=== PATIENT | female | born 1975 | race Caucasian/White ===

== ENCOUNTER 2016-11-03 13:25 | Inpatient (IN) | payer MEDICAID ==
[~2016-11-03] VITALS: Ht 162.6 cm; Wt 96.2 kg
[~2016-11-03 13:25] MED LIST: ATOR20TA15 PO; LEVO50TA4 PO; METO50TA PO; XANA1TAB2 PO
[2016-11-07] MEDS ORDERED: CITA10TA4 PO (12:13)
[2016-11-07] MEDS ORDERED: GABA300C5 PO (12:13)
[2016-11-07] MEDS ORDERED: HYDR-3580 PO (12:13)
[2016-11-10] MEDS ORDERED: CHLORHEXIDINE GLUCONATE 2 % 1 PACK (2 CLOTHS) TOPICAL PRN (05:45)
[2016-11-10] MEDS ORDERED: LACTATED RINGER'S 1000 ML IV PRN (05:45)
[2016-11-10] MEDS ORDERED: METOPROLOL TARTRATE 25 MG TAB PO PRN (05:45)
[2016-11-10] MEDS ORDERED: ceFAZolin 1,000 MG/NS 100 ML IV SCH ×2 (05:45)
[2016-11-10] MEDS ORDERED: POVIDONE IODINE 5% (ANTISEPSIS KIT) 4 APPLICATIONS EACH NARE PRN (05:45)
[2016-11-10] MEDS ORDERED: SODIUM CHLORID 0.9% 500 ML IV PRN (05:45)
[2016-11-10] MEDS ORDERED: INSULIN HUMAN REGULAR 1,000 UNITS/10 ML VIAL SQ PRN (05:45)
[2016-11-10] MEDS ORDERED: LACTATED RINGER'S 1000 ML INJ 1,000 ML IV SCH (05:45)
[2016-11-10] MEDS ORDERED: ceFAZolin 2 GM PREMIX 50 ML IV SCH (06:00)
[2016-11-10 06:08] VITALS: BP 143/71; PULSE 74; RESP 16; TEMP 98.2; O2SAT 99
[2016-11-10] MEDS ORDERED: ceFAZolin INJ 1,000 MG VIAL ONE (06:23)
[2016-11-10] MEDS ORDERED: SODIUM CHLORIDE 0.9% INJ 100 ML ONE (06:23)
[2016-11-10] MEDS ORDERED: GELFOAM SIZE 100 ONE (06:57)
[2016-11-10] MEDS ORDERED: LIDOCAINE 1%/EPINEPHrine 1:100,000 SOLN 20 ML VIAL ONE (06:57)
[2016-11-10] MEDS ORDERED: THROMBIN (TOPICAL) 5,000 UNIT VIAL ONE (06:57)
[2016-11-10] MEDS ORDERED: GENTAMICIN SULFATE 80 MG/2 ML VIAL ONE ×2 (06:57→12:33)
[2016-11-10] MEDS ORDERED: ACETAMINOPHEN 1000 MG/100 ML VIAL IV ONE (07:42)
[2016-11-10] MEDS ORDERED: MIDAZOLAM HCL 2 MG/2 ML VIAL ONE (07:42)
[2016-11-10] MEDS ORDERED: FAMOTIDINE 20 MG/2 ML VIAL ONE (07:42)
[2016-11-10] MEDS ORDERED: ceFAZolin INJ 1,000 MG VIAL IV ONE ×2 (09:09→13:09)
[2016-11-10] MEDS ORDERED: BUPIVACAINE/EPINEPHRINE 0.5% 50 ML VIAL INFIL ONE (09:10)
[2016-11-10] MEDS ORDERED: ePHEDrine/NS 25 MG/5 ML SYR IV ONE (12:00)
[2016-11-10] MEDS ORDERED: ONDANSETRON HCL 4 MG/2 ML VIAL IV PUSH ONE (12:00)
[2016-11-10] MEDS ORDERED: LACTATED RINGER'S 1000 ML INJ 2,000 ML IV ONE (12:00)
[2016-11-10] MEDS ORDERED: PHENYLEPH/NS 1000 MCG/10 ML SYR IV ONE (12:00)
[2016-11-10] MEDS ORDERED: PHENYLEPHRINE HCL 10 MG/ML VIAL IV ONE (12:00)
[2016-11-10] MEDS ORDERED: PROPOFOL 200 MG/20 ML AMP IV ONE (12:00)
[2016-11-10] MEDS ORDERED: NORMOSOL R INJ 3,000 ML IV ONE (12:00)
[2016-11-10] MEDS ORDERED: SODIUM CHLORIDE 0.9% FLUSH 5 ML FLUSH IVF PRN (15:15)
[2016-11-10] MEDS ORDERED: MORPHINE SULFATE 4 MG/ML INJ IV PRN (15:15)
[2016-11-10] MEDS ORDERED: NALOXONE HCL 0.4 MG/ML AMP IV PRN ×2 (15:15)
--- NOTE | 2016-11-10 15:25 | PD.OP ---
Operative Report Date of Surgery: Nov 10, 2016 Preoperative Diagnosis: (1) Spondylolisthesis of lumbar region (2) Annular tear of lumbar disc (3) Lumbar radiculopathy (4) Degeneration, intervertebral disc, lumbosacral (5) Low back pain 1. Grade 1 L4 5 spondylolisthesis with bilateral pars defect 2. L4 5 and L5-S1 annular tear 3. Lumbar radiculopathy 4. Lumbar degenerative disc disease 5. Severe chronic low back pain Postoperative Diagnosis: (1) Spondylolisthesis of lumbar region (2) Annular tear of lumbar disc (3) Lumbar radiculopathy (4) Degeneration, intervertebral disc, lumbosacral (5) Low back pain 1. Grade 1 L4 5 spondylolisthesis with bilateral pars defect 2. L4 5 and L5-S1 annular tear 3. Lumbar radiculopathy 4. Lumbar degenerative disc disease 5. Severe chronic low back pain Procedure: Stage I of anticipated two-stage procedure 1. Anterior retroperitoneal approach to the anterior lumbosacral spine (Dr. Elie Mera.) 2. L4 5 and L5-S1 anterior lumbar discectomy 3. L4 5 and L5-S1 lumbar anterior interbody fusion with PEEK cage, cancellus bone chips, DBM, bone marrow aspirate 4. L4 5 and L5-S1 anterior instrumentation Anesthesia: Gen. endotracheal Surgeon: Mike Tracy Patient Care Director(s): Dia Lee Operation and Findings: Indications: 41-year-old female with severe progressive intractable back pain with radiation to primarily the left greater than right lower extremity. Preoperative imaging indicates bilateral L4 pars defect with grade 1 anterolisthesis. Significant L5-S1 degenerative disc disease with significant loss of posterior intervertebral disc space height and positive annular tear. Findings were discussed again preoperatively with the patient. Patient advised prior to surgery that in the event of significant instability noted intraoperatively including with positioning, that an anticipated second stage procedure for placement of percutaneous posterior pedicle screws at the L4 -5 level will need to be performed. All patient questions answered prior to surgery. She appeared to understand the procedure and indications. Findings: Significant instability noted at the L4 5 level with excessive mobility particularly in distraction noted following disc removal. The patient was brought into the operating room, properly identified, availability of all personnel, equipment, imaging studies verified. Gen. endotracheal anesthesia was induced without difficulty. Lines were established. Anesthesia. Ludwig catheter was placed Leads for intraoperative neuro monitoring were placed and baseline study obtained The patient was placed in supine position on the concentric Zac table and all extremities appropriately padded. The arms were crossed over the upper anterior chest and secured with appropriate padding. A small corrugated cushion was placed beneath the lower lumbar region to maintain appropriate lumbar lordosis. The positioning was checked with intraoperative C-arm. The trajectory for the placement of the L4 5 and L5-S1 interbody cage was checked with C-arm imaging in order to plan the appropriate incision level.. The abdominal region was shaved, sterilely prepped and draped. Appropriate time-out procedure was performed without personal present and in agreement. The initial incision and anterior retroperitoneal approach to the L4 5 and L5- S1 levels was performed by Dr. Elie Mera and will be dictated separately. The undersigned entered the room with initial excellent exposure of the L4 5 level with retractors in place. The procedure was performed initially at the L4 5 and then the L5-S1 level sequentially, with Gen. surgery replacing the retractors for appropriate exposure between each level. The L4 5 and then L5-S1 level was sequentially verified with intraoperative C- arm. At each level, the midline incision in the annulus was made with a 10 blade knife followed by incising the anterior lateral annulus to raise a small annular flap which was retracted with a 2-0 silk suture. The round disc elevator was then used to elevate the disc away from the endplate down to the posterior vertebral margin, monitoring the progress with the lateral C-arm imaging. The majority of the disc was then removed with the large rongeurs . The remaining disc was carefully removed with the curettes and endplate scrapers to fully decorticate the endplates. The posterior vertebral body margin adjacent to the disc space was then contoured with the TPS drill with the M8 cherrie to allow proper posterior placement of the interbody cage within the disc space. The thin ligament dissector was used to release the annulus from the posterior vertebral body margin and the 3 mm Kerrison rongeur was used to remove an additional portion of the posterior vertebral body margin adjacent to the disc space at each level again to allow proper cage placement. An annular tear was noted within the mid annulus at each level, but no sequestered disc herniation was seen extending through the annular tear. At each level, the appropriate sized lordotic cage was placed based on initial trial placement using C-arm monitoring. Each cage was filled with corticocancellous chips mixed with bone marrow aspirate obtained from the L4 and L5 vertebral body using the bone marrow aspiration kit. The trocar was advanced into the vertebral artery using C-arm monitoring and sufficient amount of pulmonary aspirate was obtained for the adjacent cage. At the L4-5 and L5-S1 level, a 15 15 x 32 mm lordotic cage was placed. The annular flap was then reapproximated with a 2-0 Vicryl suture sequentially at each level. At each level sequentially, using C-arm monitoring, the [employer] anterior lumbar plate was secured using the variable screws. A 25 mm plate was used at L4-5, and a 27 mm plate at L5-S1, both anchored with 5.025 mm variable screws. The locking cam was engaged to secure the screws on each plate. The final construct was checked with intraoperative C-arm and felt to be satisfactory. The regions were well irrigated with antibiotic irrigation. The final closure was performed per general surgery, which will be dictated separately. A final flat plate abdominal x-ray was obtained to verify no foreign bodies left in the abdominal cavity, and this was reviewed per radiology prior to the patient leaving the operating room. The patient was taken to recovery room in stable condition. Estimated blood loss was 400 cc. No specimen was sent to pathology Due to the degree of instability at the L4-5 level with increased subluxation initially noted with positioning and significant motion with mild axial distraction, it is anticipated that the patient will return for stage II of this planned 2 part procedure, in order to place L4-5 bilateral percutaneous screws for additional posterior tension band orthodox due to the bilateral L4 pars defect. Mike Tracy MD Nov 10, 2016 15:25
--- NOTE | 2016-11-10 15:33 | RADRPT ---
EXAM DATE/TIME: 11/10/2016 15:15 [facility] COMPARISON: No previous studies available for comparison. INDICATIONS : Evaluate for foreign body. OR instrument count MEDICAL HISTORY : None. SURGICAL HISTORY : None. ENCOUNTER: Initial ACUITY: 1 day PAIN SCORE: Non-responsive. LOCATION: Bilateral abdomen FINDINGS: There are postsurgical changes without evidence for radiopaque instrument. CONCLUSION: No evidence of radiopaque instrument. Diane Pierre MD on November 10, 2016 at 15:31 Board Certified Radiologist. This report was verified electronically.
--- NOTE | 2016-11-10 15:48 | RADRPT ---
EXAM DATE/TIME: 11/10/2016 08:34 [facility] COMPARISON: No previous studies available for comparison. INDICATIONS : L4-L5 L5-S1 anterior fusion. MEDICAL HISTORY : Hernia, umbilical. Migraine. Endometriosis. Anxiety. Sciatica. SURGICAL HISTORY : Tubal ligation. Appendectomy. Tonsillectomy. Hysterectomy. Left ankle surgery. ENCOUNTER: Initial ACUITY: 1 day PAIN SCORE: Non-responsive. LOCATION: lumbar FINDINGS: 2 level anterior fusion is seen at L4-5 and L5-S1. CONCLUSION: Intact to immediate postoperative examination. Diane Pierre MD on November 10, 2016 at 15:47 Board Certified Radiologist. This report was verified electronically.
[2016-11-10] MEDS ORDERED: fentaNYL CITRATE 250 MCG/5 ML AMP ONE (16:00)
[2016-11-10] MEDS: D5-1/2 NS + KCL 20 MEQ INJ 1,000 ML IV SCH (16:20)
[2016-11-10] MEDS: HYDROmorphone HCL PCA 6 MG/30 ML IV SCH (16:21)
[2016-11-10] MEDS ORDERED: DO NOT ADM ANY ANTICOAGULANT DRUGS PRN (16:30)
[2016-11-10 17:30] VITALS: BP 120/66; PULSE 86; RESP 16; TEMP 96.1; O2SAT 93
[2016-11-10 20:00] VITALS: BP 101/68; PULSE 101; RESP 16; TEMP 97.5; O2SAT 95
[2016-11-10] MEDS: DOCUSATE SODIUM 100 MG CAP PO SCH (20:00)
[2016-11-10] MEDS: SODIUM CHLORIDE 0.9% FLUSH 5 ML FLUSH IVF SCH (20:01)
[2016-11-10 21:00] VITALS: O2SAT 96
[2016-11-10] MEDS: PCA - TOTAL MG DILAUDID DELIVERED PER SHIFT OTHER SCH (22:01)
--- NOTE | 2016-11-10 23:01 | MP ---
cc: MICHAEL RANDLE MD,PATRIZIA Mojica MD DATE OF SURGERY 11/10/16 PREOPERATIVE DIAGNOSIS Degenerative disease of lumbar spine L4-L5, L5-S1 POSTOPERATIVE DIAGNOSIS Degenerative disease of lumbar spine L4-L5, L5-S1 PROCEDURE Anterior retroperitoneal exposure of lumbar spine. L4-5, L5-S1 SURGEON Dr. Taylor Randle NEUROSURGEON Dr. Amari Tracy BROADCASTING EQUIPMENT MECHANIC Ly SECOND BROADCASTING EQUIPMENT MECHANIC Lynette Edwards MS III ANESTHESIA General INDICATION A 41-year-old patient of Dr. Tracy who has had severe, debilitating back pain. He has determined after extensive workup and alternative nonoperative therapies that she is a candidate for anterior exposure for anterior interbody fusion. INTRAOPERATIVE FINDINGS Successful exposure of both L4-L5 and L5-S1. ESTIMATED BLOOD LOSS 400 mL through entirety of procedure PROCEDURE IN DETAIL The patient was identified as Kirsty Correa, taken to the operating room and placed in supine position. Sequential compression devices were placed on bilateral lower extremities. The patient had undergone induction of adequate general endotracheal anesthesia, neuromonitoring and positioning under the direction of Dr. Tracy. Preoperative fluoroscopic images were obtained. The patient abdomen was prepped and draped in usual sterile fashion with Betadine and Ioban drape. Proposed obliquely oriented incision just starting about 5 cm left lateral of the umbilicus extending down to just above the pubic symphysis was made with a marking pen, infiltrated with local anesthetic and incision carried out with a scalpel. Dissection continued posteriorly through the skin and subcutaneous fatty tissue until the anterior rectus fascia on the left side was exposed. The medial border was incised and the underlying muscle was swept laterally. There was scar tissue from the patient's prior hysterectomy and care was taken to leave the muscle uninjured. The inferior epigastric vessels were identified and avoided. They were reflected laterally and a preperitoneal plane was developed using a combination of blunt dissection and electrocautery. The preperitoneal plane became a retroperitoneal plane. The posterior rectus fascia was identified and incised laterally about 6 cm superiorly to allow for further mobilization of the peritoneum. A small defect in the peritoneum was closed with a single 2-0 Vicryl [id number] suture. The iliopsoas muscle, left iliac artery and vein were identified. Continued dissection of the peritoneum off the retroperitoneal structures was performed primarily bluntly, some with electrocautery. Small blood vessels and lymphatic vessels were controlled with either hemoclips or ligatures of 2-0 silk. Attention was turned first to identification of the L5-S1 interspace. The Omni retractor was brought into the surgical field, attached to the table and renal vein retractor was used to retract and allow for identification of the L5-S1 interspace. The middle sacral vessels were divided between hemoclips. Blunt dissection on the L5-S1 interspace and on the L5 vertebral body and on the superior sacrum was then performed. Surgicel was used on several oozing spots on the sacrum and pressure was held and this was successful. The midline was identified and C-arm fluoroscopy intraoperatively was used to confirm presence at the L5-S1 interspace. Exposure 4 cm, 2 cm on either side of the midline, was confirmed with the ruler. Attention was then turned to mobilization of the left iliac artery and vein to allow for mobilization of these vessels plus the aorta and inferior vena cava across the midline for exposure of L5-S1. Small branches off the left iliac artery were controlled with hemoclips and divided. The underlying iliac vein had one major ascending lumbar vessel which was isolated from surrounding tissues, ligated with a 2-0 silk ligature and suture ligated at its juncture with the iliac vein using a 5-0 Prolene suture ligature. The distal aspect of the ascending lumbar vein was controlled with two hemoclips and it was divided. Two additional branches were encountered smaller in size and these were treated in a similar fashion. This then allowed for careful mobilization of the left iliac artery and vein as well as the vena cava and the aorta across the midline to right lateral to the vertebral bodies in the L4-L5 disk interspace. Using the Omni retractor and renal vein retractors, the vessels were held in position to allow for excellent exposure. Intraoperative C-arm fluoroscopic views allowed for confirmation of the appropriate level. Dr. Tracy then reentered the operating room and confirmed what was seen and was comfortable with the exposure at L4-L5. He then performed his portion of procedure as dictated separately by him. I was called back to the operating room when it was time to move the retractors back to the L5-S1 interspace and I did so. In doing so, we encountered some small amount of bleeding which was controlled either with electrocautery, a hemoclip or just direct pressure with Surgicel. Retractors were returned to their position to expose the L5-S1 interspace an d vertebral bodies above and below the interspace. This was confirmed on C-arm fluoroscopy and Dr. Tracy confirmed as well. Dr. Tracy then performed his portion of the procedure at L5-S1 as dictated in a separate dictation. Please refer to his dictation for details. Following completion of the diskectomy interbody fusion cage placement and the anterior plate and screws, I returned to the operating room to gradually withdraw the retractors. As the retractor was removed, there was a small amount of bleeding which was controlled with either hemoclip or direct pressure. One 1 gram of Nilo and Surgicel snow was applied and a laparotomy pad was held for several minutes. Upon removal of the laparotomy pad, there was no evidence of continued ooze. The retractors were sequentially loosened, released and removed. A handheld Major was used to retract the left rectus muscle. The peritoneum was retracted off of the retroperitoneal space and direct visualization demonstrated no evidence of bleeding. The anatomic structures including the left ureter which was uninjured and the peritoneum which was intact was returned to normal anatomic position. Attention was turned to closure of the anterior rectus fascia which was done using two single stranded #1 PDS sutures starting from the top and the bottom and meeting in the middle. The subcutaneous space was then irrigated copiously with saline. It was approximated with interrupted 2-0 Vicryl sutures deep and then superficial. The skin was then approximated with running 4-0 Monocryl subcuticular suture. Abdominal plain films were then obtained for instrument count and no retained instruments were identified on these images. Dressings were applied, Mastisol 1/2" brown Steri-Strips and an island dressing. The patient tolerated the procedure without apparent complication. Sponge, needle and instrument counts were correct at the end of the case. MD PHYLICIA Nieves/ /3:46 PM /10:47 PM [facility]
[2016-11-11] VITALS: BP 116/74; PULSE 107; RESP 17; TEMP 96.9; O2SAT 97
[2016-11-11] MEDS: D5-1/2 NS + KCL 20 MEQ INJ 1,000 ML IV SCH ×3 (00:45→22:03)
[2016-11-11] MEDS: HYDROmorphone HCL PCA 6 MG/30 ML IV SCH ×3 (02:10→20:26)
[2016-11-11] MEDS: oxyCODONE/ACETAMINOPHEN 10 MG/325 MG TAB PO PRN ×2 (02:12→08:08)
[2016-11-11 04:00] VITALS: BP 99/71; PULSE 107; RESP 16; TEMP 97.3; O2SAT 95
[2016-11-11] MEDS: PCA - TOTAL MG DILAUDID DELIVERED PER SHIFT OTHER SCH ×3 (05:17→22:00)
[2016-11-11] MEDS: ONDANSETRON HCL 4 MG/2 ML VIAL IV PRN ×2 (05:17→19:40)
[2016-11-11 06:59] LABS: AUTOMATED NEUTROPHIL # 18.3 TH/MM3 (1.8-7.7); BASOPHIL # 0.1 TH/MM3 (0-0.2); BASOPHIL % 0.4 % (0.0-2.0); EOSINOPHIL % 0.1 % (0.0-4.0); HEMATOCRIT 37.1 % (35.0-46.0); HEMO FLAGS DIFF FINAL; LYMPH % 3.9 % (9.0-44.0); LYMPHOCYTE # 0.8 TH/MM3 (1.0-4.8); MEAN CELL VOLUME 98.2 FL (80.0-100.0); MEAN CORPUSCULAR HEMOGLOBIN 32.6 PG (27.0-34.0); MEAN CORPUSCULAR HGB CONC 33.2 % (32.0-36.0); NEUT % 87.6 % (16.0-70.0); PLATELET COUNT 188 TH/MM3 (150-450); RED BLOOD COUNT 3.78 MIL/MM3 (4.00-5.30); RED CELL DISTRIBUTION WIDTH 12.4 % (11.6-17.2); WHITE BLOOD COUNT 20.9 TH/MM3 (4.0-11.0)
[2016-11-11 07:08] LABS: APTT (PATIENT) 27.6 SEC (24.3-30.1); PROTHROMBIN TIME - PATIENT 10.6 SEC (9.8-11.6)
[2016-11-11 07:20] LABS: BICARBONATE 26.2 MEQ/L (21.0-32.0); POTASSIUM 3.9 MEQ/L (3.5-5.1)
[2016-11-11 08:00] VITALS: BP 122/52; PULSE 100; RESP 18; TEMP 97.4; O2SAT 96
[2016-11-11] MEDS: DOCUSATE SODIUM 100 MG CAP PO SCH ×2 (08:08→20:12)
[2016-11-11] MEDS: PANTOPRAZOLE SOD 40 MG DELAYED RELEASE TAB PO SCH (08:08)
[2016-11-11] MEDS: SODIUM CHLORIDE 0.9% FLUSH 5 ML FLUSH IVF SCH ×2 (08:08→20:12)
--- NOTE | 2016-11-11 10:14 | HHI.NSPN ---
History Chief Complaint: Incisional pain. Interval History 11/11/16: Pt s/p Anterior retroperitoneal approach to the anterior lumbosacral spine (Dr. Elie Mera.) with L4 5 and L5-S1 anterior lumbar discectomy, anterior interbody fusion with PEEK cage, cancellus bone chips, DBM, bone marrow aspirate, anterior instrumentation. Pt awake and alert. Sitting on edge of bed with lumbar brace on with PT. No radiculopathy or paresthesias in LEs. Pt complains of nausea. Review of Systems General: Negative for: fever, chills, insomnia Respiratory: Negative for: shortness of breath, cough, sputum Cardiovascular: Negative for: chest pain Gastrointestinal: Negative for: nausea, vomitting, diarrhea, constipation Exam Results Vital Signs Date Time Temp Pulse Resp B/P Pulse Ox O2 Delivery O2 Flow Rate FiO2 11/11/16 05:17 18 11/11/16 04:00 97.3 107 99/71 95 11/10/16 21:00 Nasal Cannula 2.00 Intake and Output 11/10/16 11/10/16 11/10/16 07:59 15:59 23:59 Intake Total 4000 ml 986 ml Output Total 600 ml 750 ml Balance 3400 ml 236 ml Physical Examination Resp: CTA bilaterally Heart: NSR no murmurs Abd: Soft positive bs. Skin: Pt sitting up with brace on. Will ask RN to change bandage when back in bed. Muscle: Moves LEs with 5/5 strength. Sitting up with lumbar brace on. Neuro: Pt awake and alert. Follows commands well. Speech clear and appropriate. Lab, Micro, Other Results Last Impressions Lumbar Spine X-Ray 11/10/16 0000 Signed Impressions: Service Date/Time: Thursday, November 10, 2016 08:34 - CONCLUSION: Intact to immediate postoperative examination. Diane Pierre MD Abdomen X-Ray 11/10/16 0000 Signed Impressions: Service Date/Time: Thursday, November 10, 2016 15:15 - CONCLUSION: No evidence of radiopaque instrument. Diane Pierre MD Laboratory Tests Test 11/11/16 06:32 White Blood Count 20.9 TH/MM3 Red Blood Count 3.78 MIL/MM3 Hemoglobin 12.3 GM/DL Hematocrit 37.1 % Mean Corpuscular Volume 98.2 FL Mean Corpuscular Hemoglobin 32.6 PG Mean Corpuscular Hemoglobin 33.2 % Concent Red Cell Distribution Width 12.4 % Platelet Count 188 TH/MM3 Mean Platelet Volume 7.5 FL Neutrophils (%) (Auto) 87.6 % Lymphocytes (%) (Auto) 3.9 % Monocytes (%) (Auto) 8.0 % Eosinophils (%) (Auto) 0.1 % Basophils (%) (Auto) 0.4 % Neutrophils # (Auto) 18.3 TH/MM3 Lymphocytes # (Auto) 0.8 TH/MM3 Monocytes # (Auto) 1.7 TH/MM3 Eosinophils # (Auto) 0.0 TH/MM3 Basophils # (Auto) 0.1 TH/MM3 CBC Comment DIFF FINAL Differential Comment Prothrombin Time 10.6 SEC Prothromb Time International 1.0 RATIO Ratio Activated Partial 27.6 SEC Thromboplast Time Sodium Level 139 MEQ/L Potassium Level 3.9 MEQ/L Chloride Level 106 MEQ/L Carbon Dioxide Level 26.2 MEQ/L Anion Gap 7 MEQ/L Blood Urea Nitrogen 5 MG/DL Creatinine 0.52 MG/DL Estimat Glomerular Filtration 131 ML/MIN Rate Random Glucose 171 MG/DL Calcium Level 8.0 MG/DL 11/10/16 11/10/16 11/11/16 14:59 22:59 06:59 Intake Total 4986 ml 915 ml Output Total 1350 ml 350 ml Balance 3636 ml 565 ml Intake Oral 480 ml 480 ml IV Total 506 ml 435 ml Other 4000 ml Output Urine Total 950 ml 350 ml Estimated Blood Loss 400 ml Medical Decision Making Impression and Plan A: 41 y/o FM s/p Anterior retroperitoneal approach to the anterior lumbosacral spine (Dr. Elie Mera.) with L4 5 and L5-S1 anterior lumbar discectomy and anterior interbody fusion with PEEK cage, cancellus bone chips, DBM, bone marrow aspirate with anterior instrumentation Post op headaches and nausea. P: Will add Phenergan IM for Nausea. Increase PO fluids when nausea improved. continue with PT with Usman Rodriguez Nov 11, 2016 10:14
[2016-11-11] MEDS: ALPRAZolam 1 MG TAB PO PRN ×2 (11:52→22:09)
[2016-11-11 12:00] VITALS: BP 110/62; PULSE 86; RESP 16; TEMP 96.2; O2SAT 97
--- NOTE | 2016-11-11 14:07 | HHI.PR ---
Subjective Subjective Notes Painful in incision Has a headache and is nauseous Objective Vitals/I&O Vital Signs Date Time Temp Pulse Resp B/P Pulse Ox O2 Delivery O2 Flow Rate FiO2 11/11/16 08:00 97.4 100 18 122/52 96 11/10/16 21:00 Nasal Cannula 2.00 Labs Laboratory Tests Test 11/11/16 06:32 White Blood Count 20.9 Red Blood Count 3.78 Hemoglobin 12.3 Hematocrit 37.1 Mean Corpuscular Volume 98.2 Mean Corpuscular Hemoglobin 32.6 Mean Corpuscular Hemoglobin 33.2 Concent Red Cell Distribution Width 12.4 Platelet Count 188 Mean Platelet Volume 7.5 Neutrophils (%) (Auto) 87.6 Lymphocytes (%) (Auto) 3.9 Monocytes (%) (Auto) 8.0 Eosinophils (%) (Auto) 0.1 Basophils (%) (Auto) 0.4 Neutrophils # (Auto) 18.3 Lymphocytes # (Auto) 0.8 Monocytes # (Auto) 1.7 Eosinophils # (Auto) 0.0 Basophils # (Auto) 0.1 CBC Comment DIFF FINAL Differential Comment Prothrombin Time 10.6 Prothromb Time International 1.0 Ratio Activated Partial 27.6 Thromboplast Time Sodium Level 139 Potassium Level 3.9 Chloride Level 106 Carbon Dioxide Level 26.2 Anion Gap 7 Blood Urea Nitrogen 5 Creatinine 0.52 Estimat Glomerular Filtration 131 Rate Random Glucose 171 Calcium Level 8.0 Lungs: Clear Abdomen: Post-op tenderness Narrative Exam Dressing dry Binder in place A/P Problem List: (1) Low back pain (2) Lumbar radiculopathy (3) Degeneration, intervertebral disc, lumbosacral (4) Annular tear of lumbar disc (5) Spondylolisthesis of lumbar region Assessment and Plan POD #1 Lumbar fusion after anterior approach by Dr. Mera Nausea and some pain; using TEN PIN BOWLING C[employer] MANAGER Tolerating clear liquids Advance diet in AM Leonid Peters MD Nov 11, 2016 14:07
[2016-11-11 16:00] VITALS: BP 123/51; PULSE 90; RESP 18; TEMP 95.9; O2SAT 99
[2016-11-11] MEDS: PROMETHAZINE INJ 25 MG/ML VIAL IM PRN (17:13)
[2016-11-11 20:00] VITALS: BP 108/54; PULSE 91; RESP 16; TEMP 98; O2SAT 99
[2016-11-12] VITALS: BP 116/59; PULSE 91; RESP 17; TEMP 98.8; O2SAT 97
[2016-11-12] MEDS: ACETAMINOPHEN/HYDROcodone 325 MG/5 MG TAB PO PRN (03:09)
[2016-11-12] MEDS: PROMETHAZINE INJ 25 MG/ML VIAL IM PRN (03:16)
[2016-11-12 04:00] VITALS: BP 107/63; PULSE 86; RESP 16; TEMP 97.9; O2SAT 96
[2016-11-12] MEDS: PCA - TOTAL MG DILAUDID DELIVERED PER SHIFT OTHER SCH ×3 (06:00→22:00)
[2016-11-12] MEDS: D5-1/2 NS + KCL 20 MEQ INJ 1,000 ML IV SCH ×2 (07:08→17:08)
[2016-11-12 08:00] VITALS: BP 129/64; PULSE 104; RESP 16; TEMP 99.3; O2SAT 96
--- NOTE | 2016-11-12 08:54 | HHI.NSPN ---
History Chief Complaint: Incisional pain. Interval History 11/11/16: Pt s/p Anterior retroperitoneal approach to the anterior lumbosacral spine (Dr. Elie Mera.) with L4 5 and L5-S1 anterior lumbar discectomy, anterior interbody fusion with PEEK cage, cancellus bone chips, DBM, bone marrow aspirate, anterior instrumentation. Pt awake and alert. Sitting on edge of bed with lumbar brace on with PT. No radiculopathy or paresthesias in LEs. Pt complains of nausea. 11/12/16: Pt awakens to voice. Complains of headache. RN states headache improved with caffeine yesterday. She has Nausea and vomiting and is on Zofran and Phenergan. 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 Complains of incisional pain. No radiculopathy or paresthesias in LEs. Review of Systems General: Negative for: fever, chills, insomnia Respiratory: Negative for: shortness of breath, cough, sputum Cardiovascular: Negative for: chest pain Gastrointestinal: Positive for: nausea, vomitting, Negative for: diarrhea, constipation Exam Results Vital Signs Date Time Temp Pulse Resp B/P Pulse Ox O2 Delivery O2 Flow Rate FiO2 11/12/16 06:00 18 11/12/16 04:00 97.9 86 107/63 96 11/12/16 01:17 Nasal Cannula 2.00 Intake and Output 11/11/16 11/11/16 11/12/16 08:00 16:00 00:00 Intake Total 915 ml 480 ml 1186 ml Output Total 350 ml 550 ml 1000 ml Balance 565 ml -70 ml 186 ml Physical Examination Resp: CTA bilaterally Heart: NSR no murmurs Abd: Soft positive bs. Skin: Pt sitting up with brace on. I attempted to change bandage but pt very tender and currently uncomfortable asked me to stop. Discussed with RN who will discuss with GS and try later. Muscle: Moves LEs with 5/5 strength. Neuro: Pt awake and alert. Follows commands well. Speech clear and appropriate. Lab, Micro, Other Results Last Impressions Lumbar Spine X-Ray 11/10/16 0000 Signed Impressions: Service Date/Time: Thursday, November 10, 2016 08:34 - CONCLUSION: Intact to immediate postoperative examination. Diane Pierre MD Abdomen X-Ray 11/10/16 0000 Signed Impressions: Service Date/Time: Thursday, November 10, 2016 15:15 - CONCLUSION: No evidence of radiopaque instrument. Diane Pierre MD 11/11/16 11/11/16 11/12/16 15:00 23:00 07:00 Intake Total 1666 ml 1267 ml Output Total 1550 ml 1150 ml Balance 116 ml 117 ml Intake Oral 960 ml 480 ml IV Total 706 ml 787 ml Output Urine Total 1550 ml 1150 ml # Bowel Movements 0 Medical Decision Making Impression and Plan A: 41 y/o FM s/p Anterior retroperitoneal approach to the anterior lumbosacral spine (Dr. Elie Mera.) with L4 5 and L5-S1 anterior lumbar discectomy and anterior interbody fusion with PEEK cage, cancellus bone chips, DBM, bone marrow aspirate with anterior instrumentation Post op headaches and nausea. P: Increase PO fluids when nausea improved. 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 Usman Keller Nov 12, 2016 08:54
[2016-11-12] MEDS: DOCUSATE SODIUM 100 MG CAP PO SCH ×2 (09:00→21:00)
[2016-11-12] MEDS: PANTOPRAZOLE SOD 40 MG DELAYED RELEASE TAB PO SCH (09:00)
[2016-11-12] MEDS: SODIUM CHLORIDE 0.9% FLUSH 5 ML FLUSH IVF SCH ×2 (09:00→21:00)
[2016-11-12 09:58] VITALS: O2SAT 97
[2016-11-12 12:00] VITALS: BP 114/65; PULSE 88; RESP 16; TEMP 98.2; O2SAT 93
[2016-11-12] MEDS: oxyCODONE/ACETAMINOPHEN 10 MG/325 MG TAB PO PRN (13:19)
[2016-11-12 16:00] VITALS: BP 117/65; PULSE 80; RESP 16; TEMP 98.8; O2SAT 100
--- NOTE | 2016-11-12 16:54 | HHI.PR ---
Subjective Subjective Notes DAILY PROGRESS NOTE FOR SURGICAL ATTENDING, DR. JENNY NAJERA Postop day 2 No complaints Patient is satisfied with Pain medication Objective Vitals/I&O Vital Signs Date Time Temp Pulse Resp B/P Pulse Ox O2 Delivery O2 Flow Rate FiO2 11/12/16 12:00 98.2 88 16 114/65 93 11/12/16 09:58 Nasal Cannula 2.00 Labs Laboratory Tests Test 11/10/16 11/11/16 06:16 06:32 Blood Type O POSITIVE Antibody Screen NEGATIVE Blood Bank Comment White Blood Count 20.9 TH/MM3 Red Blood Count 3.78 MIL/MM3 Hemoglobin 12.3 GM/DL Hematocrit 37.1 % Mean Corpuscular Volume 98.2 FL Mean Corpuscular Hemoglobin 32.6 PG Mean Corpuscular Hemoglobin 33.2 % Concent Red Cell Distribution Width 12.4 % Platelet Count 188 TH/MM3 Mean Platelet Volume 7.5 FL Neutrophils (%) (Auto) 87.6 % Lymphocytes (%) (Auto) 3.9 % Monocytes (%) (Auto) 8.0 % Eosinophils (%) (Auto) 0.1 % Basophils (%) (Auto) 0.4 % Neutrophils # (Auto) 18.3 TH/MM3 Lymphocytes # (Auto) 0.8 TH/MM3 Monocytes # (Auto) 1.7 TH/MM3 Eosinophils # (Auto) 0.0 TH/MM3 Basophils # (Auto) 0.1 TH/MM3 CBC Comment DIFF FINAL Differential Comment Prothrombin Time 10.6 SEC Prothromb Time International 1.0 RATIO Ratio Activated Partial 27.6 SEC Thromboplast Time Sodium Level 139 MEQ/L Potassium Level 3.9 MEQ/L Chloride Level 106 MEQ/L Carbon Dioxide Level 26.2 MEQ/L Anion Gap 7 MEQ/L Blood Urea Nitrogen 5 MG/DL Creatinine 0.52 MG/DL Estimat Glomerular Filtration 131 ML/MIN Rate Random Glucose 171 MG/DL Calcium Level 8.0 MG/DL Radiology Last Impressions Lumbar Spine X-Ray 11/10/16 0000 Signed Impressions: Service Date/Time: Thursday, November 10, 2016 08:34 - CONCLUSION: Intact to immediate postoperative examination. Diane Pierre MD Abdomen X-Ray 11/10/16 0000 Signed Impressions: Service Date/Time: Thursday, November 10, 2016 15:15 - CONCLUSION: No evidence of radiopaque instrument. Diane Pierre MD Abdomen: Post-op tenderness Narrative Exam Patient awake and alert Lying in bed Patient appears comfortable A/P Problem List: (1) Low back pain (2) Lumbar radiculopathy (3) Degeneration, intervertebral disc, lumbosacral (4) Annular tear of lumbar disc (5) Spondylolisthesis of lumbar region Assessment and Plan POD #2 Lumbar fusion after anterior approach by Dr. Mera Nausea and some pain; using JOINER APPRENTICE Tolerating clear liquids Advance diet in AM Attending Statement NOTE FOR SURGICAL ATTENDING, DR. JENNY NAJERA I attest that I had a [id number] encounter with the patient on the same day, and personally performed and documented my assessment and findings in the medical record. The following services were provided during this hospital visit: Chart data review, vital sign assessments/reviewing monitor data Review of consultations notes if present. Medication orders/review and/or management Ordering and/or reviewing lab tests Ordering and/or interpreting/reviewing x-rays and/or diagnostic studies Care of the patient and discussion of the patient with the care team Documentation time To help prompt me to consider important information that might be impacting today's encounter and assessment, information from prior notes written by myself or my colleagues may have been "brought forward/copy and pasted" into today's note. Jenny Najera MD Nov 12, 2016 16:54
[2016-11-12] MEDS: HYDROmorphone HCL PCA 6 MG/30 ML IV SCH (21:33)
[2016-11-13] VITALS (8 sets, daily range): BP systolic 100–129; BP diastolic 48–66; PULSE 59–95; RESP 16–18; TEMP 98.4–99; O2SAT 95–98
[2016-11-13] MEDS: D5-1/2 NS + KCL 20 MEQ INJ 1,000 ML IV SCH ×3 (03:08→23:08)
[2016-11-13] MEDS: PCA - TOTAL MG DILAUDID DELIVERED PER SHIFT OTHER SCH ×3 (06:00→21:45)
[2016-11-13] MEDS: SODIUM CHLORIDE 0.9% FLUSH 5 ML FLUSH IVF SCH ×2 (09:00→20:16)
[2016-11-13] MEDS: PANTOPRAZOLE SOD 40 MG DELAYED RELEASE TAB PO SCH (10:19)
[2016-11-13] MEDS: DOCUSATE SODIUM 100 MG CAP PO SCH ×2 (10:19→20:16)
--- NOTE | 2016-11-13 12:10 | HHI.NSPN ---
History Chief Complaint: Headache & nausea Interval History 11/10: Patient presented for surgery due to severe chronic low back pain with radiculopathy. She underwent an anterior retroperitoneal approach to the anterior lumbosacral spine byDr Elie Mera followed by an L4-5 and L5-S1 anterior lumbar discectomy, interbody fusion with PEEK cage and instrumentation. Post-operatively she was admitted to a regular med/surg floor. 11/11/16: Pt awake and alert. Sitting on edge of bed with lumbar brace on with PT. No radiculopathy or paresthesias in LEs. Pt complains of nausea. 11/12/16: Pt awakens to voice. Complains of headache. RN states headache improved with caffeine yesterday. She has Nausea and vomiting and is on Zofran and Phenergan. 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 Complains of incisional pain. No radiculopathy or paresthesias in LEs. 11/13: The patient states she is doing okay today. She does endorse a headache that is better than yesterday, as well as nausea. System Review Comments Constitutional: The patient denies any fever or chills. Respiratory: The patient denies any shortness of breath or productive cough. Cardiovascular: The patient denies any chest pain, palpitations or irregular heartbeat. Gastrointestinal: The patient does have some abdominal pain as well as nausea. She denies any vomiting or incontinence of stool. Genitourinary: The patient denies any incontinence of urine. Musculoskeletal: The patient denies any pain or weakness to the extremities. Back: The patient does have some low back pain. Neurological: The patient does have a headache. She denies any dizziness, numbness or tingling. Exam Results Vital Signs Date Time Temp Pulse Resp B/P Pulse Ox O2 Delivery O2 Flow Rate FiO2 11/13/16 09:40 97 Nasal Cannula 2.00 11/13/16 08:00 98.4 72 18 117/59 Intake and Output 11/12/16 11/12/16 11/13/16 08:00 16:00 00:00 Intake Total 1267 ml 420 ml 954 ml Output Total 1150 ml 1350 ml 750 ml Balance 117 ml -930 ml 204 ml Physical Examination General: Mildly distress, flat affect. HEENT: Normocephalic, atraumatic. Respiratory: CTAB w/o W/R/R, equal excursion, nonlaboured, on RA. Cardiovascular: S1S2 w/RRR w/o M/G/R. Gastrointestinal: Abdomen soft, mildly TTP along surgical incision, positive bowel sounds. Extremities: EDWARDS w/o difficulty, no evident deformity or clubbing. Back: Midline lower thoracic & lumbar spine minimally TTP. Integumentary: Warm, dry & intact except for surgical incision to abdominal wall w/intact dressing w/some shadowing noted, no erythema or streaking evident. Neurological: AAOx3 Speech clear & appropriate Follows simple commands w/o difficulty Sensation to light touch intact to lower extremities Motor strength 5/5 to all flexion & extension muscle groups to BLE Medical Decision Making Impression and Plan Impression: (1) Spondylolisthesis of lumbar region (2) Annular tear of lumbar disc (3) Lumbar radiculopathy (4) Degeneration, intervertebral disc, lumbosacral (5) Low back pain 1. Grade 1 L4 5 spondylolisthesis with bilateral pars defect 2. L4 5 and L5-S1 annular tear 3. Lumbar radiculopathy 4. Lumbar degenerative disc disease 5. Severe chronic low back pain Patient doing well, some incisional pain, improved back pain, no radiculopathy POD # 3 () s/p: 1. Anterior retroperitoneal approach to the anterior lumbosacral spine (Dr. Elie Mera.) 2. L4 5 and L5-S1 anterior lumbar discectomy 3. L4 5 and L5-S1 lumbar anterior interbody fusion with PEEK cage, cancellus bone chips, DBM, bone marrow aspirate 4. L4 5 and L5-S1 anterior instrumentation Plan: Continue pain control w/LATEX FOAM WORKER Continue anti-emetics Mobilise patient w/assistance LSO brace when OOB Continue PT Advance diet as tolerated Plan for L4-5 pedicle screw placement tomorrow Elver Ramírez Nov 13, 2016 12:10
--- NOTE | 2016-11-13 13:08 | HHI.PR ---
Subjective Subjective Notes Sitting up in chair. Has had a migraine headache, Excedrin migraine works the best for her, but Dr Tracy is planning surgery tomorrow, so no aspirin! Has passed flatus, no BM yet. Denies nausea at this time. Objective Vitals/I&O Vital Signs Date Time Temp Pulse Resp B/P Pulse Ox O2 Delivery O2 Flow Rate FiO2 11/13/16 12:00 99.0 68 18 100/50 96 11/13/16 09:40 Nasal Cannula 2.00 Radiology Last Impressions Lumbar Spine X-Ray 11/10/16 0000 Signed Impressions: Service Date/Time: Thursday, November 10, 2016 08:34 - CONCLUSION: Intact to immediate postoperative examination. Diane Pierre MD Abdomen X-Ray 11/10/16 0000 Signed Impressions: Service Date/Time: Thursday, November 10, 2016 15:15 - CONCLUSION: No evidence of radiopaque instrument. Diane Pierre MD Lungs: Clear Abdomen: Non-distended, Other (Dressing dry and intact, no drainage, no abdominal erythema.), Post-op tenderness Extremities: Perfused A/P Problem List: (1) Low back pain (2) Lumbar radiculopathy (3) Degeneration, intervertebral disc, lumbosacral (4) Annular tear of lumbar disc (5) Spondylolisthesis of lumbar region Assessment and Plan POD #3 s/p anterior retroperitoneal exposure L4L5, L5 S1 for discectomy and anterior interbody fusion, anterior plates. Migraine headache. Apparently going back to surgery for posterior fixation tomorrow per Dr Tracy. Hopefully she can have Excedrin to help her migraine postop. Stable from GS/ exposure standpoint. Elie Mera MD Nov 13, 2016 13:08
[2016-11-13] MEDS: HYDROmorphone HCL PCA 6 MG/30 ML IV SCH (20:16)
[2016-11-14] VITALS (8 sets, daily range): BP systolic 107–131; BP diastolic 59–74; PULSE 50–88; RESP 17–20; TEMP 97–98.9; O2SAT 92–98
[2016-11-14] MEDS ORDERED: LACTATED RINGER'S 1000 ML IV PRN (00:15)
[2016-11-14] MEDS ORDERED: CHLORHEXIDINE GLUCONATE 2 % 1 PACK (2 CLOTHS) TOPICAL PRN (00:15)
[2016-11-14] MEDS ORDERED: SODIUM CHLORID 0.9% 500 ML IV PRN (00:15)
[2016-11-14] MEDS ORDERED: INSULIN HUMAN REGULAR 1,000 UNITS/10 ML VIAL SQ PRN (00:15)
[2016-11-14] MEDS ORDERED: POVIDONE IODINE 5% (ANTISEPSIS KIT) 4 APPLICATIONS EACH NARE PRN (00:15)
[2016-11-14] MEDS ORDERED: METOPROLOL TARTRATE 25 MG TAB PO PRN (00:15)
[2016-11-14] MEDS: PCA - TOTAL MG DILAUDID DELIVERED PER SHIFT OTHER SCH ×3 (05:21→22:00)
[2016-11-14] MEDS: HYDROmorphone HCL PCA 6 MG/30 ML IV SCH ×2 (05:21→14:52)
[2016-11-14] MEDS: DOCUSATE SODIUM 100 MG CAP PO SCH ×2 (08:28→20:04)
[2016-11-14] MEDS: PANTOPRAZOLE SOD 40 MG DELAYED RELEASE TAB PO SCH (08:28)
--- NOTE | 2016-11-14 08:28 | HHI.PR ---
Subjective Subjective Notes sore in abdomen. Going for posterior fixation this afternoon. No nausea, passing flatus. Objective Vitals/I&O Vital Signs Date Time Temp Pulse Resp B/P Pulse Ox O2 Delivery O2 Flow Rate FiO2 11/14/16 05:21 17 11/14/16 04:18 98.6 79 116/74 96 11/13/16 17:51 Nasal Cannula 2.00 Radiology Last Impressions Lumbar Spine X-Ray 11/10/16 0000 Signed Impressions: Service Date/Time: Thursday, November 10, 2016 08:34 - CONCLUSION: Intact to immediate postoperative examination. Diane Pierre MD Abdomen X-Ray 11/10/16 0000 Signed Impressions: Service Date/Time: Thursday, November 10, 2016 15:15 - CONCLUSION: No evidence of radiopaque instrument. Diane Pierre MD Abdomen: Non-distended, Other (mild ecchymosis along incision, no erythema or drainage.), Post-op tenderness, BS normal Extremities: No edema, Perfused A/P Problem List: (1) Low back pain (2) Lumbar radiculopathy (3) Degeneration, intervertebral disc, lumbosacral (4) Annular tear of lumbar disc (5) Spondylolisthesis of lumbar region Assessment and Plan POD #4 s/p anterior retroperitoneal exposure L4L5, L5 S1 for discectomy and anterior interbody fusion, anterior plates. Return to OR this afternoon for posterior fixation. Will follow along peripherally. Elie Mera MD Nov 14, 2016 08:27
[2016-11-14] MEDS: SODIUM CHLORIDE 0.9% FLUSH 5 ML FLUSH IVF SCH ×2 (08:31→20:04)
[2016-11-14] MEDS: D5-1/2 NS + KCL 20 MEQ INJ 1,000 ML IV SCH ×2 (09:08→20:04)
--- NOTE | 2016-11-14 10:34 | HHI.NSPN ---
(Elver Ramírez) History Chief Complaint: Slight headache (Elver Ramírez) Interval History 11/10: Patient presented for surgery due to severe chronic low back pain with radiculopathy. She underwent an anterior retroperitoneal approach to the anterior lumbosacral spine byDr Elie Mera followed by an L4-5 and L5-S1 anterior lumbar discectomy, interbody fusion with PEEK cage and instrumentation. Post-operatively she was admitted to a regular med/surg floor. 11/11/16: Pt awake and alert. Sitting on edge of bed with lumbar brace on with PT. No radiculopathy or paresthesias in LEs. Pt complains of nausea. 11/12/16: Pt awakens to voice. Complains of headache. RN states headache improved with caffeine yesterday. She has Nausea and vomiting and is on Zofran and Phenergan. 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 Complains of incisional pain. No radiculopathy or paresthesias in LEs. 11/13: The patient states she is doing okay today. She does endorse a headache that is better than yesterday, as well as nausea. 11/14: The patient is doing good today. She has the curtains back in the room. She states that she has a slight headache that is much better than yesterday. She has had some nausea but none at present. (Elver Ramírez) System Review Comments Constitutional: The patient denies any fever or chills. Respiratory: The patient denies any shortness of breath or productive cough. Cardiovascular: The patient denies any chest pain, palpitations or irregular heartbeat. Gastrointestinal: The patient has had some nausea, she also has some pain at the incision. She denies any vomiting or incontinence of stool. Genitourinary: The patient denies any incontinence of urine. Musculoskeletal: The patient denies any pain or weakness to the extremities. Back: The patient does have some low back pain. Neurological: The patient has a slight headache that is much better than yesterday. She denies any dizziness, numbness or tingling. (Elver Ramírez ) Exam Results Vital Signs Date Time Temp Pulse Resp B/P Pulse Ox O2 Delivery O2 Flow Rate FiO2 11/14/16 08:00 98.2 72 20 107/62 97 11/13/16 17:51 Nasal Cannula 2.00 Intake and Output 11/13/16 11/13/16 11/14/16 08:00 16:00 00:00 Intake Total 322 ml 960 ml 480 ml Output Total 1000 ml 1100 ml 800 ml Balance -678 ml -140 ml -320 ml (Elver Ramírez) Physical Examination General: Awake, watching TV in bed, no apparent distress, readily interacts, smiles, normal affect. HEENT: Normocephalic, atraumatic. Respiratory: CTAB w/o W/R/R, equal excursion, nonlaboured, on RA. Cardiovascular: S1S2 w/RRR w/o M/G/R. Gastrointestinal: Abdomen soft, mildly TTP along surgical incision, positive bowel sounds. Extremities: EDWARDS w/o difficulty, no evident deformity or clubbing. Back: Midline lower thoracic & lumbar spine minimally TTP. Integumentary: Warm, dry & intact except for surgical incision to abdominal wall w/intact dressing w/o shadowing, no erythema or streaking evident. Neurological: AAOx3 Speech clear & appropriate Follows simple commands w/o difficulty Sensation to light touch intact to lower extremities Motor strength 5/5 to all flexion & extension muscle groups to BLE (Elver Ramírez) Medical Decision Making Impression and Plan Impression: (1) Spondylolisthesis of lumbar region (2) Annular tear of lumbar disc (3) Lumbar radiculopathy (4) Degeneration, intervertebral disc, lumbosacral (5) Low back pain 1. Grade 1 L4 5 spondylolisthesis with bilateral pars defect 2. L4 5 and L5-S1 annular tear 3. Lumbar radiculopathy 4. Lumbar degenerative disc disease 5. Severe chronic low back pain Patient doing well, some incisional pain, improved back pain, no radiculopathy, headache much better today POD # 4 () s/p: 1. Anterior retroperitoneal approach to the anterior lumbosacral spine (Dr. Elie Mera.) 2. L4 5 and L5-S1 anterior lumbar discectomy 3. L4 5 and L5-S1 lumbar anterior interbody fusion with PEEK cage, cancellus bone chips, DBM, bone marrow aspirate 4. L4 5 and L5-S1 anterior instrumentation Plan: Continue pain control w/FIRE CHIEF Continue anti-emetics Mobilise patient w/assistance LSO brace when OOB Continue PT NPO at present for OR Stat CT lumbar spine Plan for L4-5 pedicle screw placement this afternoon (Elver Ramírez) Attending Statement I have personally seen and examined the patient on 11/14/16. Pertinent documentation and study results have been reviewed by the undersigned. I have personally developed the treatment plan and performed medical decision making. Agree with findings, exam, and treatment plan as noted above.. Due to the operating schedule, patient's planned L4-5 percutaneous pedicle screw -carmen fixation will be postponed until 11/15/16. Patient is somewhat more comfortable today, still utilizing the FIRE CHIEF. She was able to ambulate only a short distance in her room today. (Mike Tracy MD) Elver Ramírez Nov 14, 2016 10:34 Mike Tracy MD Nov 14, 2016 20:56
--- NOTE | 2016-11-14 12:32 | RADRPT ---
EXAM DATE/TIME: 11/14/2016 11:26 [facility] COMPARISON: No previous studies available for comparison. INDICATIONS : Back surgery 5 days ago. Subsequent surgery today. Back pain. RADIATION DOSE: 35.86 CTDIvol (mGy) MEDICAL HISTORY : Carotid stenosis. Hypertension. SURGICAL HISTORY : Appendectomy. Hysterectomy. ENCOUNTER: Subsequent ACUITY: 4 - 6 days PAIN SCALE: 3/10 LOCATION: Back TECHNIQUE: Volumetric scanning of the lumbar spine was performed. Multiplanar reconstructions in the sagittal, coronal and oblique axial planes were performed. Using automated exposure control and adjustment of the mA and/or kV according to patient size, radiation dose was kept as low as reasonab ly achievable to obtain optimal diagnostic quality images. DICOM format image data is available fátima ctronically for review and comparison. FINDINGS: CT scan of the lumbar spine demonstrates the patient has had anterior fusion from L4 to L5 and L5-S1. There are fusion devices at both L4-L5 and L5-S1. There is slight retrolisthesis of L5 compared to the rest of the lumbar spine. There is a bilateral pars defect of L4 without displacement or hypertrophy. The rest of the spine is unremarkable. The upper lumbar spine is unremarkable. Endplates are intact. There is marked presacral swelling. Only the upper half of the sacrum is included on the study. There is a tiny amount of air and fluid anterior to the L5-S1 fusion plate. CONCLUSION: Fusion from L4 to S1 with two anterior plates. No complication of the hardware although there is ernie e fluid and air around the L5-S1 plate. Bilateral L4 pars defect. No evidence of endplate fracture. Evin Beaulieu MD on November 14, 2016 at 12:13 Board Certified Radiologist. This report was verified electronically.
[2016-11-14] MEDS: oxyCODONE/ACETAMINOPHEN 10 MG/325 MG TAB PO PRN (20:05)
[2016-11-14] MEDS: ALPRAZolam 1 MG TAB PO PRN (20:42)
[2016-11-15] VITALS (7 sets, daily range): BP systolic 103–128; BP diastolic 53–81; PULSE 52–83; RESP 12–18; TEMP 96.6–99.4; O2SAT 91–99
[2016-11-15] MEDS: HYDROmorphone HCL PCA 6 MG/30 ML IV SCH ×2 (00:27→11:03)
[2016-11-15] MEDS: oxyCODONE/ACETAMINOPHEN 10 MG/325 MG TAB PO PRN ×2 (02:08→07:46)
[2016-11-15] MEDS: D5-1/2 NS + KCL 20 MEQ INJ 1,000 ML IV SCH ×3 (04:13→21:49)
[2016-11-15] MEDS: ALPRAZolam 1 MG TAB PO PRN ×2 (05:25→20:08)
[2016-11-15] MEDS: PCA - TOTAL MG DILAUDID DELIVERED PER SHIFT OTHER SCH ×3 (05:25→21:41)
[2016-11-15] MEDS: PANTOPRAZOLE SOD 40 MG DELAYED RELEASE TAB PO SCH (07:46)
[2016-11-15] MEDS: DOCUSATE SODIUM 100 MG CAP PO SCH ×2 (07:46→20:08)
[2016-11-15] MEDS: SODIUM CHLORIDE 0.9% FLUSH 5 ML FLUSH IVF SCH ×2 (07:47→20:09)
--- NOTE | 2016-11-15 10:07 | HHI.NSPN ---
(Elver Ramírez) History Chief Complaint: Abdominal pain (Elver Ramírez) Interval History 11/10: Patient presented for surgery due to severe chronic low back pain with radiculopathy. She underwent an anterior retroperitoneal approach to the anterior lumbosacral spine byDr Elie Mera followed by an L4-5 and L5-S1 anterior lumbar discectomy, interbody fusion with PEEK cage and instrumentation. Post-operatively she was admitted to a regular med/surg floor. 11/11/16: Pt awake and alert. Sitting on edge of bed with lumbar brace on with PT. No radiculopathy or paresthesias in LEs. Pt complains of nausea. 11/12/16: Pt awakens to voice. Complains of headache. RN states headache improved with caffeine yesterday. She has Nausea and vomiting and is on Zofran and Phenergan. 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 Complains of incisional pain. No radiculopathy or paresthesias in LEs. 11/13: The patient states she is doing okay today. She does endorse a headache that is better than yesterday, as well as nausea. 11/14: The patient is doing good today. She has the curtains back in the room. She states that she has a slight headache that is much better than yesterday. She has had some nausea but none at present. 11/15: The patient continues to do well. She is having an increase in her abdominal pain today with some nausea. She reports that her headache is almost resolved. She was to go to the OR yesterday but it was cancelled. She is to go this afternoon. (Elver Ramírez) System Review Comments Constitutional: The patient denies any fever or chills. Respiratory: The patient denies any shortness of breath or productive cough. Cardiovascular: The patient denies any chest pain, palpitations or irregular heartbeat. Gastrointestinal: The patient has some abdominal pain as well as some nausea. She denies any vomiting or incontinence of stool. Genitourinary: The patient denies any incontinence of urine. Musculoskeletal: The patient denies any pain or weakness to the extremities. Back: The patient does have pain to the low back. Neurological: The patient has a slight headache that is almost gone. She denies any dizziness, numbness or tingling. (Elver Ramírez) Exam Results Vital Signs Date Time Temp Pulse Resp B/P Pulse Ox O2 Delivery O2 Flow Rate FiO2 11/15/16 08:00 96.6 58 18 118/68 96 11/14/16 20:40 21 11/13/16 17:51 Nasal Cannula 2.00 Intake and Output 11/14/16 11/14/16 11/15/16 08:00 16:00 00:00 Intake Total 480 ml 720 ml Output Total 650 ml 300 ml 550 ml Balance -170 ml -300 ml 170 ml (Elver Rmaírez) Physical Examination General: Awake, no apparent distress, readily interacts, smiles, normal affect. HEENT: Normocephalic, atraumatic. Respiratory: CTAB w/o W/R/R, equal excursion, nonlaboured, on RA. Cardiovascular: S1S2 w/RRR w/o M/G/R. Gastrointestinal: Abdomen soft, moderately TTP along surgical incision, positive bowel sounds. Extremities: EDWARDS w/o difficulty, no evident deformity or clubbing. Back: Midline lower thoracic & lumbar spine minimally TTP. Integumentary: Warm, dry & intact except for surgical incision to abdominal wall w/intact dressing w/o shadowing, no erythema or streaking evident. Neurological: AAOx3 Speech clear & appropriate Follows simple commands w/o difficulty Sensation to light touch intact to lower extremities Motor strength 5/5 to all flexion & extension muscle groups to BLE (Elver Ramírez) Lab, Micro, Other Results Allergies Coded Allergies Type Severity Reaction Last Updated Verified Toradol Allergy Unknown 11/10/16 Yes Tramadol Allergy Unknown 11/10/16 Yes Recent Impressions Lumbar Spine CT 11/14/16 1025 Signed Impressions: Service Date/Time: Monday, November 14, 2016 11:26 - CONCLUSION: Fusion from L4 to S1 with two anterior plates. No complication of the hardware although there is some fluid and air around the L5-S1 plate. Bilateral L4 pars defect. No evidence of endplate fracture. Evin Beaulieu MD 11/13//17/177/18/177/18/177/19/177//17 06:00 18:00 06:00 18:00 06:00 18:00 Intake Total 1276 ml 960 ml 960 ml 720 ml Output Total 1750 ml 1100 ml 1450 ml 300 ml 1000 ml Balance -474 ml -140 ml -490 ml -300 ml -280 ml Intake Oral 725 ml 960 ml 960 ml 720 ml IV Total 551 ml Output Urine Total 1750 ml 1100 ml 1450 ml 300 ml 1000 ml # Bowel Movements 0 0 Vital Signs Date Time Temp Pulse Resp B/P Pulse Ox O2 Delivery O2 Flow Rate FiO2 11/15/16 08:00 96.6 58 18 118/68 96 11/15/16 05:25 16 11/15/16 04:16 97.8 68 17 103/53 94 11/15/16 00:27 16 11/15/16 00:22 98.8 83 16 111/72 95 11/14/16 22:00 17 11/14/16 20:40 97 21 11/14/16 20:00 98.9 88 20 116/64 97 11/14/16 16:00 97.3 56 20 131/65 93 11/14/16 14:52 18 11/14/16 14:00 18 11/14/16 12:50 98 11/14/16 12:00 97.0 50 20 121/59 93 11/14/16 08:00 98.2 72 20 107/62 97 11/14/16 05:21 17 11/14/16 05:21 17 11/14/16 04:18 98.6 79 18 116/74 96 11/14/16 00:00 98.1 69 17 118/59 92 11/13/16 21:45 17 11/13/16 20:16 17 11/13/16 20:00 99.0 95 17 129/66 97 11/13/16 17:51 96 Nasal Cannula 2.00 11/13/16 16:00 98.9 59 18 129/53 96 11/13/16 14:00 17 11/13/16 12:00 99.0 68 18 100/50 96 11/13/16 09:40 97 Nasal Cannula 2.00 11/13/16 08:00 98.4 72 18 117/59 98 11/13/16 06:00 18 11/13/16 04:37 Nasal Cannula 2.00 11/13/16 04:00 98.7 67 16 107/48 97 11/13/16 00:00 98.8 83 17 111/49 95 11/12/16 22:24 18 11/12/16 22:00 18 11/12/16 21:33 18 11/12/16 21:12 Nasal Cannula 2.00 11/12/16 16:00 98.8 80 16 117/65 100 11/12/16 12:00 98.2 88 16 114/65 93 11/12/16 09:58 97 Nasal Cannula 2.00 (Elver Ramírez) Medical Decision Making Impression and Plan Impression: (1) Spondylolisthesis of lumbar region (2) Annular tear of lumbar disc (3) Lumbar radiculopathy (4) Degeneration, intervertebral disc, lumbosacral (5) Low back pain 1. Grade 1 L4 5 spondylolisthesis with bilateral pars defect 2. L4 5 and L5-S1 annular tear 3. Lumbar radiculopathy 4. Lumbar degenerative disc disease 5. Severe chronic low back pain CT lumbar spine demonstrates L4-S1 fusion with two anterior plates, some fluid & air around the L5-S1 plate, bilateral L4 pars defect, no evident endplate fracture Patient continues to do well, increased incisional pain, stable back pain, no radiculopathy, headache much better today PT recommends wheeled walker and further therapy either inpatient or w/[facility] POD # 5 () s/p: 1. Anterior retroperitoneal approach to the anterior lumbosacral spine (Dr. Elie Mera.) 2. L4 5 and L5-S1 anterior lumbar discectomy 3. L4 5 and L5-S1 lumbar anterior interbody fusion with PEEK cage, cancellus bone chips, DBM, bone marrow aspirate 4. 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 Pertinent documentation and study results have been reviewed by the undersigned. I have personally developed the treatment plan and performed medical decision making. Agree with findings, exam, and treatment plan as noted above. Plan for surgery, indications, risks and possible complications for discussed with the patient again today. I have answered all of her questions. She wishes to proceed with surgery scheduled for later today. (Mike Tracy MD) Elver Ramírez Nov 15, 2016 10:07 Mike Tracy MD Nov 15, 2016 20:10
[2016-11-15] MEDS ORDERED: LORazepam 2 MG/ML VIAL IV PUSH ONE (11:15)
[2016-11-15] MEDS ORDERED: PROPOFOL 200 MG/20 ML AMP IV ONE (12:00)
[2016-11-15] MEDS ORDERED: LACTATED RINGER'S 1000 ML INJ 1,000 ML IV ONE (12:00)
[2016-11-15] MEDS ORDERED: ONDANSETRON HCL 4 MG/2 ML VIAL IV PUSH ONE (12:00)
[2016-11-15] MEDS ORDERED: PHENYLEPH/NS 1000 MCG/10 ML SYR IV ONE (12:00)
[2016-11-15] MEDS ORDERED: THROMBIN (TOPICAL) 5,000 UNIT VIAL ONE (13:25)
[2016-11-15] MEDS ORDERED: GELFOAM SIZE 100 ONE (13:25)
[2016-11-15] MEDS ORDERED: GENTAMICIN SULFATE 80 MG/2 ML VIAL ONE (13:26)
[2016-11-15] MEDS ORDERED: LIDOCAINE 1%/EPINEPHrine 1:100,000 SOLN 20 ML VIAL ONE (13:26)
[2016-11-15] MEDS ORDERED: FAMOTIDINE 20 MG/2 ML VIAL ONE (13:44)
[2016-11-15] MEDS ORDERED: DEXAMETHASONE SOD PHOS 4 MG/ML VIAL ONE (13:44)
[2016-11-15] MEDS ORDERED: ACETAMINOPHEN 1000 MG/100 ML VIAL IV ONE (13:53)
[2016-11-15] MEDS ORDERED: HYDROmorphone HCL PF 2 MG/ML VIAL ONE (13:54)
[2016-11-15] MEDS ORDERED: KETAMINE HCL 500 MG/5 ML VIAL ONE (14:01)
[2016-11-15] MEDS ORDERED: ceFAZolin INJ 1,000 MG VIAL IV ONE (14:50)
--- NOTE | 2016-11-15 15:26 | HHI.DCPOC ---
Discharge Care Plan Diagnosis: (1) Low back pain (2) Lumbar radiculopathy (3) Degeneration, intervertebral disc, lumbosacral (4) Annular tear of lumbar disc (5) Spondylolisthesis of lumbar region Your Health Problems Are: Incision/Drains Goals to Promote Your Health * To prevent worsening of your condition and complications * To maintain your health at the optimal level Avoid any products containing aspirin or NSAID (ibuprofen, Advil, Motrin, naproxen, etc). Wear the LSO brace when out of bed. No lifting, reaching, bending, pushing, pulling or twisting with the back. Directions to Meet Your Goals Take your medications as prescribed Avoid any products containing aspirin or NSAID (ibuprofen, Advil, Motrin, naproxen, etc). Follow your dietary instruction Follow activity as directed Wear the LSO brace when out of bed. No lifting, reaching, bending, pushing, pulling or twisting with the back. Keep your appointments as scheduled Follow up in 2 weeks Take your immunizations and boosters as scheduled If your symptoms worsen call your PCP, if no PCP go to Urgent Care Center or Emergency Room Smoking is Dangerous to Your Health. Avoid second hand smoke Call the 24-hour hour crisis hotline for domestic abuse at Elver Ramírez Nov 15, 2016 15:26
--- NOTE | 2016-11-15 15:30 | HHI.DS ---
Discharge Summary Admission Date Nov 10, 2016 at 05:27 Discharge Date: Nov 17, 2016 Admitting Diagnosis (1) Low back pain Diagnosis: Principal ICD Code: M54.5 (2) Lumbar radiculopathy Diagnosis: Secondary ICD Code: M54.16 (3) Degeneration, intervertebral disc, lumbosacral Diagnosis: Secondary ICD Code: M51.37 (4) Annular tear of lumbar disc Diagnosis: Secondary ICD Code: M51.36 (5) Spondylolisthesis of lumbar region Diagnosis: Secondary ICD Code: M43.16 Procedures Procedure #1 (): 1. Anterior retroperitoneal approach to the anterior lumbosacral spine (Dr. Elie Mera.) 2. L4 5 and L5-S1 anterior lumbar discectomy 3. L4 5 and L5-S1 lumbar anterior interbody fusion with PEEK cage, cancellus bone chips, DBM, bone marrow aspirate 4. L4 5 and L5-S1 anterior instrumentation Procedure #2 (): 1. Bilateral L4-5 posterior instrumentation, percutaneous pedicle screw fixation 2. Final intraoperative reduction of L4 5 spondylolisthesis secondary to bilateral L4 spondylolysis CBC/BMP: 11/11/16 0632 11/11/16 0632 Hospital Course 11/10: Patient presented for surgery due to severe chronic low back pain with radiculopathy. She underwent an anterior retroperitoneal approach to the anterior lumbosacral spine byDr Elie Mera followed by an L4-5 and L5-S1 anterior lumbar discectomy, interbody fusion with PEEK cage and instrumentation. Post-operatively she was admitted to a regular med/surg floor. 11/11/16: Pt awake and alert. Sitting on edge of bed with lumbar brace on with PT. No radiculopathy or paresthesias in LEs. Pt complains of nausea. 11/12/16: Pt awakens to voice. Complains of headache. RN states headache improved with caffeine yesterday. She has Nausea and vomiting and is on Zofran and Phenergan. 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 Complains of incisional pain. No radiculopathy or paresthesias in LEs. 11/13: The patient states she is doing okay today. She does endorse a headache that is better than yesterday, as well as nausea. 11/14: The patient is doing good today. She has the curtains back in the room. She states that she has a slight headache that is much better than yesterday. She has had some nausea but none at present. 11/15: The patient continues to do well. She is having an increase in her abdominal pain today with some nausea. She reports that her headache is almost resolved. She was to go to the OR yesterday but it was cancelled. She is to go this afternoon. 11/16: The patient is doing well when seen this morning. She is in her LSO brace and Physical Therapy had just gotten her up to the chair. She reports pain to the back and some to the abdominal surgical wound. She states that getting up with Physical Therapy today was much better than yesterday. She went for the second stage of her surgery yesterday afternoon. Nursing did report that the patient was somewhat confused this morning and didn't remember that she had surgery yesterday. 11/17: The patient continues to do well when seen this afternoon. She is sitting up in the chair eating lunch with her LSO brace in on. She does have pain to the back and abdomen. She states that she is doing better than yesterday. Pt Condition on Discharge: Good Discharge Disposition: Rehab Inpatient Discharge Instructions DIET: Follow Instructions for: As Tolerated, No Restrictions ACTIVITIES You can perform: Weight Bearing As David Activities to Avoid: Lifting/Bending, Strenuous Activity ADDITIONAL Activity Instructio: Wear the LSO brace when out of bed. Avoid any twisting of the back. Elver Ramírez Nov 15, 2016 15:30
--- NOTE | 2016-11-15 15:41 | HHI.PR ---
Subjective Subjective Notes Resting in bed Eager to have procedure with Dr. Tracy today JIM Carpenter at bedside Objective Vitals/I&O Vital Signs Date Time Temp Pulse Resp B/P Pulse Ox O2 Delivery O2 Flow Rate FiO2 11/15/16 12:00 97.2 52 17 120/61 91 11/15/16 10:14 21 11/13/16 17:51 Nasal Cannula 2.00 Radiology Last Impressions Lumbar Spine X-Ray 11/10/16 0000 Signed Impressions: Service Date/Time: Thursday, November 10, 2016 08:34 - CONCLUSION: Intact to immediate postoperative examination. Diane Pierre MD Abdomen X-Ray 11/10/16 0000 Signed Impressions: Service Date/Time: Thursday, November 10, 2016 15:15 - CONCLUSION: No evidence of radiopaque instrument. Diane Pierre MD Cardiovascular: Regular Lungs: Clear Abdomen: Other (midline incision c/d/i with Steri strips in place; soft; dressing removed without any drainage ), Post-op tenderness Extremities: No edema A/P Problem List: (1) Low back pain (2) Lumbar radiculopathy (3) Degeneration, intervertebral disc, lumbosacral (4) Annular tear of lumbar disc (5) Spondylolisthesis of lumbar region Assessment and Plan 41 year old female POD5 anterior retroperitoneal exposure L4L5, L5 S1 for discectomy and anterior interbody fusion, anterior plates. -OR this afternoon with Dr. Tracy for for posterior fixation. -NPO for procedure -Restart diet post op Attending Statement The exam, history, and the medical decision-making described in the above note were completed with the assistance of the mid-level provider. I reviewed and agree with the findings presented. Lety Gruber Nov 15, 2016 15:41 Elie Mera MD Nov 15, 2016 16:08
[2016-11-15] MEDS ORDERED: fentaNYL CITRATE 250 MCG/5 ML AMP ONE (17:41)
[2016-11-15] MEDS ORDERED: MIDAZOLAM HCL 2 MG/2 ML VIAL ONE (17:41)
--- NOTE | 2016-11-15 17:51 | PD.OP ---
Operative Report Date of Surgery: Nov 15, 2016 Preoperative Diagnosis: (1) Spondylolisthesis of lumbar region (2) Lumbar radiculopathy 1. L4 5 spondylolisthesis with bilateral L4 spondylolysis 2. Lumbar radiculopathy. 3. Status post initial anterior retroperitoneal approach for L4 5 and L5-S1 anterior discectomy, interbody fusion, anterior instrumentation Postoperative Diagnosis: (1) Spondylolisthesis of lumbar region (2) Lumbar radiculopathy 1. L4 5 spondylolisthesis with bilateral L4 spondylolysis 2. Lumbar radiculopathy. 3. Status post initial anterior retroperitoneal approach for L4 5 and L5-S1 anterior discectomy, interbody fusion, anterior instrumentation Procedure: Part 2 of planned two-stage procedure. 1. Bilateral L4-5 posterior instrumentation, percutaneous pedicle screw fixation 2. Final intraoperative reduction of L4 5 spondylolisthesis secondary to bilateral L4 spondylolysis. Anesthesia: Gen. endotracheal Surgeon: Mike Tracy Fish Dressing Machine Feeder(s): Leonid Johnson Operation and Findings: Indications: The patient previously underwent recent L4 5 and L5-S1 anterior lumbar discectomy and interbody fusion with anterior instrumentation for treatment of L4-5 spondylolisthesis with bilateral spondylolysis, L4 5 and L5- S1 annular tear with chronic severe low back pain and radiculopathy. Due to the bilateral L4 pars defect and residual anterolisthesis at the L4 5 level following the anterior lumbar interbody fusion, it has been planned to return for part 2 of the planned two-stage procedure in order to place posterior percutaneous pedicle screw fixation at the L4 5 level with further intraoperative reduction of the anterolisthesis. A discussion of the procedure and indications with the patient was performed both prior to the initial first part of the two-stage procedure as well as prior to this second part of the procedure. Procedure in detail The patient was brought to the operating room and general endotracheal anesthesia induced without difficulty Lines were established per Anesthesia Sequential compression devices and Ludwig catheter were in place The patient was positioned prone on the concentric Zac table with the side bolsters and all extremities appropriately padded A bolster was placed beneath the abdominal region for additional support Leads for intraoperative neuro monitoring were placed prior to positioning and a baseline study obtained Appropriate timeout procedure was performed with all personnel present and in agreement The lumbar region was shaved with clippers and sterilely prepped and draped 1% Xylocaine with epinephrine was used for local infiltration over the incision sites which was made approximately 6cm lateral to the midline at the bilateral L4-L5 level and carried sharply down to the fascia. The fascia was sharply incised and finger dissection was used to separate the normal intermuscular plane at the level, allowing direct palpation of the junction of the and pedicle and transverse process on each side. The entry point for the pedicle screws were determined by anatomic and radiographic landmarks. Using AP and lateral C-arm imaging, the Jamshidi needle was guided through the bilateral L4 and L5 pedicle. The intraoperative C-arm imaging was used to verify appropriate Jamshidi needle placement. The wires were then placed through the Jamshidi needle cannulas, and the cannula was withdrawn. The wires were temporarily clipped away from the operative field. The cannulated 5.5 mm tap was then used to prepare the pedicle screw sites on each side, with the dilators used to protect the surrounding tissue. The appropriate length Spine Wave Sniper percutaneous cannulated pedicle screw attached to the MIS extenders with the reduction tabs were placed into the bilateral L4 and L5 pedicle using the existing guidewires which were then removed. Pedicle screw placement was checked with intraoperative C-arm imaging and felt to be satisfactory. The percutaneous rods were placed across the pedicle screws on each side. Compression and alignment were achieved as necessary with the rods and reducers. The L5 screws were left a few millimeters higher than the L4 screws. The L5 screws were locked in place initially, and the residual spondylolisthesis was then reduced on each side using the reduction break off tabs to raise the L4 screws up into the carmen.The entire construct was checked with intraoperative C- arm and felt to be satisfactory The locking caps were secured with the torque wrench and anti-torque device The region was well irrigated with antibiotic irrigation The closure was performed with 0 Vicryl interrupted for the deep and superficial fascia, with 3-0 Vicryl for the subcutaneous closure and 4-0 Vicryl running subcuticular closure. Dressings sterile Mastisol, Steri-Strips and Primapore was placed The patient was turned into supine position and taken to recovery room in stable condition All counts were correct at the end of the case Estimated blood loss was 25 cc No specimen was sent to pathology Neuro monitoring was stable during the procedure Mike Tracy MD Nov 15, 2016 17:51
--- NOTE | 2016-11-15 18:02 | RADRPT ---
EXAM DATE/TIME: 11/15/2016 14:53 [facility] COMPARISON: SPINE LUMBAR LTD (AP & LAT), November 10, 2016, 8:34. INDICATIONS : Posterior lumbar fusion, L4-5. MEDICAL HISTORY : Carotid stenosis. Hypertension. SURGICAL HISTORY : Appendectomy. Hysterectomy. Anterior lumbar fusion. ENCOUNTER: Subsequent ACUITY: 1 day PAIN SCORE: Non-responsive. LOCATION: Lumbar. FINDINGS: Posterior left L5 fixation with hardware in good position. Redemonstration of prior anterior L4-5 and L5-S1 fixation. No gross acute fracture CONCLUSION: 1. Expected immediate postsurgical changes of posterior L4-5 carmen and screw fixation. Gonzalo Stephens MD on November 15, 2016 at 17:59 Board Certified Radiologist. This report was verified electronically.
[2016-11-15] MEDS ORDERED: DO NOT ADM ANY ANTICOAGULANT DRUGS PRN (18:30)
[2016-11-15] MEDS: ACETAMINOPHEN/HYDROcodone 325 MG/5 MG TAB PO PRN (22:34)
[2016-11-16] VITALS (7 sets, daily range): BP systolic 92–141; BP diastolic 48–74; PULSE 52–87; RESP 10–18; TEMP 96.7–98.1; O2SAT 90–99
[2016-11-16] MEDS: D5-1/2 NS + KCL 20 MEQ INJ 1,000 ML IV SCH (01:41)
[2016-11-16] MEDS: MAGNESIUM HYDROXIDE SUSP 30 ML CUP PO SCH ×2 (01:41→13:53)
[2016-11-16] MEDS: HYDROmorphone HCL PCA 6 MG/30 ML IV SCH ×2 (01:48→12:52)
[2016-11-16] MEDS: oxyCODONE/ACETAMINOPHEN 10 MG/325 MG TAB PO PRN ×3 (02:29→16:48)
[2016-11-16] MEDS: ALPRAZolam 1 MG TAB PO PRN ×3 (05:17→22:37)
[2016-11-16] MEDS: PCA - TOTAL MG DILAUDID DELIVERED PER SHIFT OTHER SCH ×2 (05:26→13:52)
[2016-11-16] MEDS: DOCUSATE SODIUM 100 MG CAP PO SCH ×2 (09:17→22:01)
[2016-11-16] MEDS: PANTOPRAZOLE SOD 40 MG DELAYED RELEASE TAB PO SCH (09:17)
[2016-11-16] MEDS: SODIUM CHLORIDE 0.9% FLUSH 5 ML FLUSH IVF SCH ×2 (09:18→22:06)
[2016-11-16] MEDS: ONDANSETRON HCL 4 MG/2 ML VIAL IV PRN (09:54)
--- NOTE | 2016-11-16 11:02 | HHI.NSPN ---
(Elver Ramírez) History Chief Complaint: Back pain (Elver Ramírez) Interval History 11/10: Patient presented for surgery due to severe chronic low back pain with radiculopathy. She underwent an anterior retroperitoneal approach to the anterior lumbosacral spine byDr Elie Mera followed by an L4-5 and L5-S1 anterior lumbar discectomy, interbody fusion with PEEK cage and instrumentation. Post-operatively she was admitted to a regular med/surg floor. 11/11/16: Pt awake and alert. Sitting on edge of bed with lumbar brace on with PT. No radiculopathy or paresthesias in LEs. Pt complains of nausea. 11/12/16: Pt awakens to voice. Complains of headache. RN states headache improved with caffeine yesterday. She has Nausea and vomiting and is on Zofran and Phenergan. She is on STRIP FEEDER. Complains of incisional pain. No radiculopathy or paresthesias in LEs. 11/13: The patient states she is doing okay today. She does endorse a headache that is better than yesterday, as well as nausea. 11/14: The patient is doing good today. She has the curtains back in the room. She states that she has a slight headache that is much better than yesterday. She has had some nausea but none at present. 11/15: The patient continues to do well. She is having an increase in her abdominal pain today with some nausea. She reports that her headache is almost resolved. She was to go to the OR yesterday but it was cancelled. She is to go this afternoon. 11/16: The patient is doing well when seen this morning. She is in her LSO brace and Physical Therapy had just gotten her up to the chair. She reports pain to the back and some to the abdominal surgical wound. She states that getting up with Physical Therapy today was much better than yesterday. She went for the second stage of her surgery yesterday afternoon. Nursing did report that the patient was somewhat confused this morning and didn't remember that she had surgery yesterday. (Elver Ramírez) System Review Comments Constitutional: The patient denies any fever or chills. Respiratory: The patient denies any shortness of breath or productive cough. Cardiovascular: The patient denies any chest pain, palpitations or irregular heartbeat. Gastrointestinal: The patient has some abdominal pain. She denies any nausea, vomiting or incontinence of stool. Genitourinary: The patient has a Ludwig catheter in place. Musculoskeletal: The patient denies any pain or weakness to the extremities. Back: The patient does have pain to the low back. Neurological: The patient denies any headache, dizziness, numbness or tingling. (Elver Ramírez) Exam Results Vital Signs Date Time Temp Pulse Resp B/P Pulse Ox O2 Delivery O2 Flow Rate FiO2 11/16/16 10:08 94 11/16/16 08:00 98.1 73 17 100/48 11/15/16 18:30 Nasal Cannula 11/15/16 18:00 2 11/15/16 10:14 21 Intake and Output 11/15/16 11/15/16 11/16/16 08:00 16:00 00:00 Intake Total 0 ml 66 ml 480 ml Output Total 450 ml 400 ml 1400 ml Balance -450 ml -334 ml -920 ml (Elver Ramírez) Physical Examination General: Awake, no apparent distress, readily interacts, smiles, normal affect. HEENT: Normocephalic, atraumatic. Respiratory: CTAB w/o W/R/R, equal excursion, nonlaboured, on RA. Cardiovascular: S1S2 w/RRR w/o M/G/R. Gastrointestinal: Deferred, in chair w/LSO brace in place. Genitourinary: Ludwig catheter to BSD w/clear yellow urine. Extremities: EDWARDS w/o difficulty, no evident deformity or clubbing. Back: Deferred, in chair w/LSO brace in place. Integumentary: Warm, dry & intact, unable to assess surgical incisions. Neurological: AAOx3 Speech clear & appropriate Follows simple commands w/o difficulty Sensation to light touch intact to lower extremities Motor strength 5/5 to all flexion & extension muscle groups to BLE (Elver Ramírez) Medical Decision Making Impression and Plan Impression: (1) Spondylolisthesis of lumbar region (2) Annular tear of lumbar disc (3) Lumbar radiculopathy (4) Degeneration, intervertebral disc, lumbosacral (5) Low back pain 1. Grade 1 L4 5 spondylolisthesis with bilateral pars defect 2. L4 5 and L5-S1 annular tear 3. Lumbar radiculopathy 4. Lumbar degenerative disc disease 5. Severe chronic low back pain CT lumbar spine demonstrates L4-S1 fusion with two anterior plates, some fluid & air around the L5-S1 plate, bilateral L4 pars defect, no evident endplate fracture Patient is doing well this morning, neurologically intact, pain controlled, no radiculopathy PT recommends wheeled walker and further therapy either inpatient or w/[facility] POD # 5 () s/p: 1. Anterior retroperitoneal approach to the anterior lumbosacral spine (Dr. Elie Mera.) 2. L4 5 and L5-S1 anterior lumbar discectomy 3. L4 5 and L5-S1 lumbar anterior interbody fusion with PEEK cage, cancellus bone chips, DBM, bone marrow aspirate 4. L4 5 and L5-S1 anterior instrumentation POD # 1 () s/p: 1. Bilateral L4-5 posterior instrumentation, percutaneous pedicle screw fixation 2. Final intraoperative reduction of L4 5 spondylolisthesis secondary to bilateral L4 spondylolysis. Plan: Continue pain control w/STRIP FEEDER Continue anti-emetics Mobilise patient w/assistance LSO brace when OOB Continue PT Consult for inpatient rehab at [place] Possible discharge later today (Elver Ramírez) Attending Statement The exam, history, and the medical decision-making described in the above note were completed with the assistance of the mid-level provider. I reviewed and agree with the findings presented. I attest that I had a [id number] encounter with the patient on the same day, and personally performed and documented my assessment and findings in the medical record. Patient seems somewhat more comfortable today. STRIP FEEDER use is diminishing. Plan to discontinue the STRIP FEEDER this evening and continue on oral Dilaudid and other medications. Discontinue Ludwig catheter in a.m. Discussed disposition with the patient. (Mike Tracy MD) Elver Ramírez Nov 16, 2016 11:02 Mike Tracy MD Nov 16, 2016 18:54
[2016-11-16] MEDS ORDERED: MAGNESIUM CITRATE SOLN 300 ML BTL PO ONE (12:30)
--- NOTE | 2016-11-16 21:28 | HHI.PR ---
Subjective Subjective Notes Doing well post op; tolerating diet Objective Vitals/I&O Vital Signs Date Time Temp Pulse Resp B/P Pulse Ox O2 Delivery O2 Flow Rate FiO2 11/16/16 14:00 97.8 71 18 109/69 94 11/16/16 12:04 Nasal Cannula 2.00 11/15/16 10:14 21 Radiology Last Impressions Lumbar Spine X-Ray 11/10/16 0000 Signed Impressions: Service Date/Time: Thursday, November 10, 2016 08:34 - CONCLUSION: Intact to immediate postoperative examination. Diane Pierre MD Abdomen X-Ray 11/10/16 0000 Signed Impressions: Service Date/Time: Thursday, November 10, 2016 15:15 - CONCLUSION: No evidence of radiopaque instrument. Diane Pierre MD Cardiovascular: Regular Lungs: Clear Abdomen: Other (midline incision with SS; soft non tender ) Extremities: No edema A/P Problem List: (1) Low back pain (2) Lumbar radiculopathy (3) Degeneration, intervertebral disc, lumbosacral (4) Annular tear of lumbar disc (5) Spondylolisthesis of lumbar region Assessment and Plan 41 year old female POD6 anterior retroperitoneal exposure L4L5, L5 S1 for discectomy and anterior interbody fusion, anterior plates; POD1 posterior fixation (Dr. Tracy) -Regular diet -Pain control -OOB as directed by Dr. Tracy Attending Statement she has c/o abdominal discomfort as expected. Incision is healing well. The exam, history, and the medical decision-making described in the above note were completed with the assistance of the mid-level provider. I reviewed and agree with the findings presented. I attest that I had a [id number] encounter with the patient on the same day, and personally performed and documented my assessment and findings in the medical record. Lety Gruber Nov 16, 2016 21:28 Elie Mera MD Nov 17, 2016 15:30
[2016-11-16] MEDS: HYDROmorphone HCL 2 MG TAB PO PRN (22:05)
[2016-11-17] VITALS: BP 114/62; PULSE 79; RESP 16; TEMP 98.9; O2SAT 98
[2016-11-17] MEDS: MAGNESIUM HYDROXIDE SUSP 30 ML CUP PO SCH ×2 (01:17→14:47)
[2016-11-17] MEDS: HYDROmorphone HCL 2 MG TAB PO PRN ×4 (02:27→14:47)
[2016-11-17 04:00] VITALS: BP 125/79; PULSE 98; RESP 16; TEMP 99.6; O2SAT 95
[2016-11-17] MEDS: ALPRAZolam 1 MG TAB PO PRN ×2 (06:03→14:47)
[2016-11-17 07:50] VITALS: BP 108/65; PULSE 90; RESP 20; TEMP 96.5; O2SAT 90
[2016-11-17] MEDS: SODIUM CHLORIDE 0.9% FLUSH 5 ML FLUSH IVF SCH (09:00)
[2016-11-17] MEDS: PANTOPRAZOLE SOD 40 MG DELAYED RELEASE TAB PO SCH (09:04)
[2016-11-17] MEDS: DOCUSATE SODIUM 100 MG CAP PO SCH (09:04)
[2016-11-17 11:27] VITALS: BP 107/56; PULSE 86; RESP 20; TEMP 99.4; O2SAT 94
--- NOTE | 2016-11-17 14:16 | HHI.NSPN ---
History Chief Complaint: Back & abdominal pain Interval History 11/10: Patient presented for surgery due to severe chronic low back pain with radiculopathy. She underwent an anterior retroperitoneal approach to the anterior lumbosacral spine byDr Elie Mera followed by an L4-5 and L5-S1 anterior lumbar discectomy, interbody fusion with PEEK cage and instrumentation. Post-operatively she was admitted to a regular med/surg floor. 11/11/16: Pt awake and alert. Sitting on edge of bed with lumbar brace on with PT. No radiculopathy or paresthesias in LEs. Pt complains of nausea. 11/12/16: Pt awakens to voice. Complains of headache. RN states headache improved with caffeine yesterday. She has Nausea and vomiting and is on Zofran and Phenergan. She is on [employer] C[employer]GIVER. Complains of incisional pain. No radiculopathy or paresthesias in LEs. 11/13: The patient states she is doing okay today. She does endorse a headache that is better than yesterday, as well as nausea. 11/14: The patient is doing good today. She has the curtains back in the room. She states that she has a slight headache that is much better than yesterday. She has had some nausea but none at present. 11/15: The patient continues to do well. She is having an increase in her abdominal pain today with some nausea. She reports that her headache is almost resolved. She was to go to the OR yesterday but it was cancelled. She is to go this afternoon. 11/16: The patient is doing well when seen this morning. She is in her LSO brace and Physical Therapy had just gotten her up to the chair. She reports pain to the back and some to the abdominal surgical wound. She states that getting up with Physical Therapy today was much better than yesterday. She went for the second stage of her surgery yesterday afternoon. Nursing did report that the patient was somewhat confused this morning and didn't remember that she had surgery yesterday. 11/17: The patient continues to do well when seen this afternoon. She is sitting up in the chair eating lunch with her LSO brace in on. She does have pain to the back and abdomen. She states that she is doing better than yesterday. System Review Comments Constitutional: The patient denies any fever or chills. Respiratory: The patient denies any shortness of breath or productive cough. Cardiovascular: The patient denies any chest pain, palpitations or irregular heartbeat. Gastrointestinal: The patient has some abdominal pain. She denies any nausea, vomiting or incontinence of stool. Genitourinary: The patient denies any incontinence of urine. Musculoskeletal: The patient denies any pain or weakness to the extremities. Back: The patient does have pain to the low back. Neurological: The patient denies any headache, dizziness, numbness or tingling. Exam Results Vital Signs Date Time Temp Pulse Resp B/P Pulse Ox O2 Delivery O2 Flow Rate FiO2 11/17/16 11:27 99.4 86 20 107/56 94 11/16/16 21:57 21 11/16/16 12:04 Nasal Cannula 2.00 Intake and Output 11/16/16 11/16/16 11/17/16 08:00 16:00 00:00 Intake Total 240 ml 1372 ml 720 ml Output Total 550 ml 150 ml 550 ml Balance -310 ml 1222 ml 170 ml Physical Examination General: Awake, no apparent distress, readily interacts, smiles, normal affect. HEENT: Normocephalic, atraumatic. Respiratory: CTAB w/o W/R/R, equal excursion, nonlaboured, on RA. Cardiovascular: S1S2 w/RRR w/o M/G/R. Gastrointestinal: Deferred, in chair w/LSO brace in place. Extremities: EDWARDS w/o difficulty, no evident deformity or clubbing. Back: Deferred, in chair w/LSO brace in place. Integumentary: Warm, dry & intact, unable to assess surgical incisions. Neurological: AAOx3 Speech clear & appropriate Follows simple commands w/o difficulty Sensation to light touch intact to lower extremities Motor strength 5/5 to all flexion & extension muscle groups to BLE Medical Decision Making Impression and Plan Impression: (1) Spondylolisthesis of lumbar region (2) Annular tear of lumbar disc (3) Lumbar radiculopathy (4) Degeneration, intervertebral disc, lumbosacral (5) Low back pain 1. Grade 1 L4 5 spondylolisthesis with bilateral pars defect 2. L4 5 and L5-S1 annular tear 3. Lumbar radiculopathy 4. Lumbar degenerative disc disease 5. Severe chronic low back pain CT lumbar spine demonstrates L4-S1 fusion with two anterior plates, some fluid & air around the L5-S1 plate, bilateral L4 pars defect, no evident endplate fracture Patient continues to do well and remains neurologically intact, pain controlled , no radiculopathy PT recommends wheeled walker and further therapy either inpatient or w/[facility] POD # 7 () s/p: 1. Anterior retroperitoneal approach to the anterior lumbosacral spine (Dr. Elie Mera.) 2. L4 5 and L5-S1 anterior lumbar discectomy 3. L4 5 and L5-S1 lumbar anterior interbody fusion with PEEK cage, cancellus bone chips, DBM, bone marrow aspirate 4. L4 5 and L5-S1 anterior instrumentation POD # 2 () s/p: 1. Bilateral L4-5 posterior instrumentation, percutaneous pedicle screw fixation 2. Final intraoperative reduction of L4 5 spondylolisthesis secondary to bilateral L4 spondylolysis. Plan: Pain control w/PO meds Continue anti-emetics Mobilise patient w/assistance LSO brace when OOB Continue PT Consult for inpatient rehab at [facility] Will discharge for admission to [facility] Elver Ramírez Nov 17, 2016 14:16
--- NOTE | 2016-11-17 15:33 | HHI.PR ---
Subjective Subjective Notes tolerating a diet, smaller amounts. Having flatus and BMs. Voids on her own. Objective Vitals/I&O Vital Signs Date Time Temp Pulse Resp B/P Pulse Ox O2 Delivery O2 Flow Rate FiO2 11/17/16 11:27 99.4 86 20 107/56 94 11/16/16 21:57 21 11/16/16 12:04 Nasal Cannula 2.00 Radiology Last Impressions Lumbar Spine X-Ray 11/10/16 0000 Signed Impressions: Service Date/Time: Thursday, November 10, 2016 08:34 - CONCLUSION: Intact to immediate postoperative examination. Diane Pierre MD Abdomen X-Ray 11/10/16 0000 Signed Impressions: Service Date/Time: Thursday, November 10, 2016 15:15 - CONCLUSION: No evidence of radiopaque instrument. Diane Pierre MD Abdomen: Non-distended, Other (soft, dressing dry. No erytham, minimal dried drainage.), Post-op tenderness A/P Problem List: (1) Low back pain (2) Lumbar radiculopathy (3) Degeneration, intervertebral disc, lumbosacral (4) Annular tear of lumbar disc (5) Spondylolisthesis of lumbar region Assessment and Plan Postop anterior retroperitoneal exposure L4L5, L5 S1 for discectomy and anterior interbody fusion, anterior plates. Postop posterior fixation. Doing well. Going to [facility] for strengthening prior to DC home. Follow up with me in 2-4 weeks after DC from [facility]. Elie Mera MD Nov 17, 2016 15:33
[2016-11-17 15:37] VITALS: BP 91/49; PULSE 83; RESP 19; TEMP 99.1; O2SAT 93
== END 2016-11-17 17:16 | DRG 460 ==
LOC: HSDI 11-10 05:27 → N06A 11-10 17:16
PROVIDERS: ADMIT Neurological Surgery; ATTEND Neurological Surgery
PROC: 0ST20ZZ Resection of Lumbar Vertebral Disc, Open Approach (ICD-10-PCS; 2016-11-10)
PROC: 0ST40ZZ Resection of Lumbosacral Disc, Open Approach (ICD-10-PCS; 2016-11-10)
PROC: 07DS3ZZ Extraction of Vertebral Bone Marrow, Percutaneous Approach (ICD-10-PCS; 2016-11-10)
PROC: 0SG00A0 Fusion of Lumbar Vertebral Joint with Interbody Fusion Device, Anterior Approach, Anterior Column, Open Approach (ICD-10-PCS; principal; 2016-11-10 07:46)
PROC: 0SG30A0 Fusion of Lumbosacral Joint with Interbody Fusion Device, Anterior Approach, Anterior Column, Open Approach (ICD-10-PCS; 2016-11-10 07:46)
PROC: 0SH034Z Insertion of Internal Fixation Device into Lumbar Vertebral Joint, Percutaneous Approach (ICD-10-PCS; 2016-11-15)
DX: M43.16 Spondylolisthesis, lumbar region (principal); I10 Essential (primary) hypertension; F17.210 Nicotine dependence, cigarettes, uncomplicated; G43.909 Migraine, unspecified, not intractable, without status migrainosus; M51.36 Other intervertebral disc degeneration, lumbar region; M51.17 Intervertebral disc disorders with radiculopathy, lumbosacral region
CPT/HCPCS: 72100; 72131; 74000; 76000; 76937; 80048; 85025; 85610; 85730; 86850; 86900; 86901; 94150; C1713; J0131; J0690; J1100; J1170; J1580; J2060; J2250; J2370; J2405; J2550; J3010; J3480; J7120; L0484

== ENCOUNTER → 2016-11-07 | Outpatient (CLI) | payer MEDICAID ==
[~2016-11-07] MED LIST changes: +CITA10TA4 PO; +GABA300C5 PO; +HYDR-3516 PO; +HYDR-3580 PO
[2016-11-07 12:59] LABS: HEMATOCRIT 48.3 % (35.0-46.0); MEAN CELL VOLUME 96.6 FL (80.0-100.0); MEAN CORPUSCULAR HEMOGLOBIN 32.2 PG (27.0-34.0); MEAN CORPUSCULAR HGB CONC 33.4 % (32.0-36.0); PLATELET COUNT 240 TH/MM3 (150-450); RED CELL DISTRIBUTION WIDTH 12.3 % (11.6-17.2); REVIEW FLAG FINAL; WHITE BLOOD COUNT 9.8 TH/MM3 (4.0-11.0)
[2016-11-07 13:04] LABS: APTT (PATIENT) 29.2 SEC (24.3-30.1); PROTHROMBIN TIME - PATIENT 10.5 SEC (9.8-11.6)
[2016-11-07 13:22] LABS: BICARBONATE 22.2 MEQ/L (21.0-32.0); POTASSIUM 3.4 MEQ/L (3.5-5.1)
--- NOTE | 2016-11-07 15:20 | RADRPT ---
EXAM DATE/TIME: 11/07/2016 13:09 [facility] COMPARISON: No previous studies available for comparison. INDICATIONS : Evaluate for pneumonia, pneumothorax or communicable disease. Pre-op anterior cervical diskectomy. [facility] date 11/10/2016. MEDICAL HISTORY : Hypertension. SURGICAL HISTORY : None. ENCOUNTER: Initial ACUITY: 1 day PAIN SCORE: 0/10 LOCATION: Bilateral chest FINDINGS: The lungs are clear without infiltrate, nodule, or mass. There is no appreciable pleural effusion fo r technique. Heart and mediastinum are unremarkable. There is old healed and deformed right clavicul ar fracture. CONCLUSION: No acute cardiopulmonary disease. Diane Pierre MD on November 07, 2016 at 15:18 Board Certified Radiologist. This report was verified electronically.
--- NOTE | 2016-11-08 17:07 | EKG ---
Date Performed: 11/07/2016 Time Performed: 12:39:51 PTAGE: 41 years EKG: Sinus rhythm WITH SINUS ARRHYTHMIA LOW QRS VOLTAGE IN PRECORDIAL LEADS BORDERLINE ECG NO PREVIOUS TRACING DOCTOR: Sindy Dove Interpretating Date/Time 11/08/2016 17:06:53
== END ==
LOC: CPRE 11:48
PROVIDERS: ATTEND Neurological Surgery
DX: Z01.812 Encounter for preprocedural laboratory examination (principal); Z01.811 Encounter for preprocedural respiratory examination; Z01.810 Encounter for preprocedural cardiovascular examination; M43.16 Spondylolisthesis, lumbar region; M51.36 Other intervertebral disc degeneration, lumbar region; M54.16 Radiculopathy, lumbar region; R94.31 Abnormal electrocardiogram [ECG] [EKG]
CPT/HCPCS: 36415; 71020; 80048; 85027; 85610; 85730; 93005